=== PATIENT | female | born 1955 | race Caucasian/White ===

== ENCOUNTER 2021-07-25 12:11 | Emergency (ER) | payer BC, OTHER, SELFPAY ==
--- NOTE | ~2021-07-25 | CT_ITS ---
EXAMINATION: CT brain wo con DATE: 07/25/2021 14:01 INDICATION: Headache. Head injury. TECHNIQUE: Computed tomography (CT) of the head was performed without intravenous contrast. The mA wa s adjusted according to patient size. Iterative reconstruction technique was employed. The dose-lengt h product was 605.33 mGy-cm. COMPARISON: Brain MRI 07/13/2004 FINDINGS: There is no intracranial hemorrhage, acute infarction, or abnormal intracranial mass lesion . The ventricles are normal in size. There is mild mucosal thickening in the ethmoid sinuses. The orb its are normal. The mastoid air cells are normal. IMPRESSION: 1. Normal brain. Reviewed, dictated and finalized at location A. OR SALES OPERATIONS ANALYST IMPRESSION: 1. Normal brain.
--- NOTE | ~2021-07-25 | CT_ITS ---
EXAMINATION: CT thoracic spine wo con DATE: 07/25/2021 14:02 INDICATION: Back pain. Fall. TECHNIQUE: Computed tomography (CT) of the thoracic spine was performed without intravenous contrast. Automated exposure control and iterative reconstruction technique were employed. The dose-length pro duct was 369.00 mGy-cm. COMPARISON: None FINDINGS: There is 4 degrees dextrocurvature of thoracolumbar spine. There is 2 mm anterolisthesis of T2 on T3. There is a compression fracture of T3 with 2/5 loss of height of the inferior endplate. Th ere is a chronic mild compression fracture of T5. There is mild chronic anterior wedging of T11, T12, and L1 vertebral bodies. There is mildly decreased disc height at T2-T3, T6-T7, and T7-T8. There is multilevel facet joint osteoarthritis, severe bilaterally at T1-T2. There is mild bilateral neural fo raminal stenosis at T1-T2. No central canal stenosis. IMPRESSION: 1. Acute versus subacute T3 compression fracture. 2. Mild thoracic spondylosis. Reviewed, dictated and finalized at location A. ERCIAL LOAN OFFICER
--- NOTE | ~2021-07-25 | CT_ITS ---
EXAMINATION: CT cervical spine wo con DATE: 07/25/2021 14:01 INDICATION: Neck pain. Head injury. TECHNIQUE: Computed tomography (CT) of the cervical spine was performed without intravenous contrast. Automated exposure control and iterative reconstruction technique were employed. The dose-length pro duct was 133.46 mGy-cm. COMPARISON: None FINDINGS: There is 2 mm anterolisthesis of C5 on C6 and C7 on T1. There is a compression fracture inv olving inferior endplate of T3 with 2/5 loss of height. There is moderately decreased disc height at C3-C4 and C5-C6 and severely decreased disc height at C4-C5 and C6-C7. The following disc levels are specifically discussed: C2-C3: There is no uncovertebral joint osteoarthritis. There is moderate right and mild left facet ind[place] int osteoarthritis. There is no neural foraminal stenosis. There is no central canal stenosis. C3-C4: There is severe bilateral uncovertebral joint osteoarthritis. There is severe bilateral facet joint osteoarthritis. There is moderate bilateral neural foraminal stenosis. There is mild central ca nal stenosis. C4-C5: There is severe bilateral uncovertebral joint osteoarthritis. There is moderate right and kailyn re left facet joint osteoarthritis. There is moderate bilateral neural foraminal stenosis. There is m ild central canal stenosis. C5-C6: There is severe bilateral uncovertebral joint osteoarthritis. There is severe right and mild l eft facet joint osteoarthritis. There is moderate bilateral neural foraminal stenosis. There is mild central canal stenosis. C6-C7: There is mild right and severe left uncovertebral joint osteoarthritis. There is mild bilatera l facet joint osteoarthritis. There is moderate bilateral neural foraminal stenosis. There is mild ce ntral canal stenosis. C7-T1: There is no uncovertebral joint osteoarthritis. There is severe bilateral facet joint osteoart hritis. There is mild right and moderate left neural foraminal stenosis. There is no central canal st enosis. IMPRESSION: 1. Acute versus subacute T3 compression fracture. 2. Severe cervical spondylosis. Reviewed, dictated and finalized at location A. HANDLER
[2021-07-25 12:35] VITALS: BP 131/87; PULSE 100; RESP 16; TEMP 36.7; O2SAT 100
--- NOTE | 2021-07-25 13:55 | PC.NURSE ---
1355- RN WENT TO APPLY C-COLLAR AND PATIENT NOT IN ROOM.
--- NOTE | 2021-07-25 14:07 | PC.NURSE ---
1405-PATIENT RETURNED FROM CT SCAN. RN WENT TO APPLY C-COLLAR AND PATIENT DECLINED. PATIENT STATES I HAVE BEEN WALKING AROUND SINCE SUNDAY . PATIENT STATES SHE IS NOT CONCERNED ABOUT HER NECK I AM MY BACK .
--- NOTE | 2021-07-25 14:08 | ED.FALL ---
HPI - Fall General Chief Complaint: Fall Stated Complaint: fall Time Seen by Provider: 07/25/21 13:15 Source: patient Mode of arrival: ambulatory Limitations: no limitations History of Present Illness HPI Narrative: This is a 65 year old female that presents to the ER for back pain after a fall 2 days ago. Reports on Sunday night her fell down the steps, crashing into her and a speaker. Reports this caused her to fall backwards down about 3 steps and hit her head on the floor. Reports since the injury she has had mid-upper back pain and headaches. Denies vision changes, vomiting, numbness or weakness. Related Data Home Medications Medication Instructions Recorded Confirmed aspirin 81 mg tablet,delayed 81 mg PO DAILY 10/23/19 04/19/21 release calcium carb,cit 300 mg-D3 200 tablet PO 10/23/19 04/19/21 unit-min no.34-genistein 13.5 mg tablet cetirizine 10 mg tablet 10 mg PO DAILY 10/23/19 04/19/21 denosumab 60 mg/mL subcutaneous 60 mg SUB-Q [id number] 10/23/19 04/19/21 syringe ipratropium bromide 0.02 % 2.5 ml INHALATION Q6H PRN 10/23/19 04/19/21 solution for inhalation montelukast 10 mg tablet 10 mg PO DAILY 10/23/19 04/19/21 multivit with 1 tablet PO DAILY 10/23/19 04/19/21 sljvtbon-qzqe-FG-lutein 8 mg iron-400 mcg-300 mcg tablet albuterol sulfate 90 mcg/actuation 1 inhalation INHALATION Q4-6H PRN 10/25/19 04/19/21 aerosol inhaler gm gabapentin 600 mg tablet 300 mg PO .COMPLEX tablet 10/14/20 04/19/21 cholecalciferol (vitamin D3) 1,250 50,000 unit PO MONTHLY cap 04/19/21 04/19/21 mcg (50,000 unit) capsule Allergies Allergy/AdvReac Type Severity Reaction Status Date / Time tetracycline Allergy Unknown Hallucinati Verified 07/25/21 12:38 ng Review of Systems Review of Systems: CONSTITUTIONAL: Denies fever EYES: Denies visual changes GASTROINTESTINAL: Denies vomiting MUSCULOSKELETAL: Reports back pain, joint pain, and myalgia. NEUROLOGIC: Reports headache. Denies numbness, or weakness. All systems reviewed & are unremarkable except as noted in HPI and below PMFSH Past Medical History Medical History (Updated 07/25/21 @ 17:16 by Viky Dent PA-C) Hypothyroidism, acquired Osteoporosis Family History Family History Mother Family history of osteoporosis Sibling Family history of osteoporosis Social History Social History Smoking status: Never smoker Alcohol intake: current Exam Narrative: GENERAL: Well-appearing, well-nourished, and in no acute distress. HEAD: Normocephalic, atraumatic. EYES: PERRLA and EOMI. ENT: Nares clear, no rhinorrhea or epistaxis. Mucous membranes moist. Oropharynx without tonsillar hypertrophy exudate or other lesions. Bilateral TMs pearly arellano non-bulging NECK: Supple. No adenopathy or masses. Tender to palpation of midline lower cervical spine CHEST: Clear to auscultation. No respiratory distress. No wheezes rales or rhonchi HEART: Regular rate and rhythm. No murmur heard. Normal peripheral pulses. BACK: Tender to palpation of midline thoracic spine. No midline lumbar spine tenderness EXTREMITIES: Normal range of motion. No edema or obvious deformity. Strength equal in bilateral upper and lower extremities (5/5) SKIN: Warm, dry, no rash. NEURO: No focal deficits. Alert and oriented x3. Cranial nerves II through XII grossly intact PSYCH: Normal mood and affect Course Consultations Consultation #1: Spoke with Dr. Delgadillo about patient and workup who recommends TLSO bracing and follow up in clinic Date: 07/25/21 Time: 16:23 Vital Signs Vital signs: Vital Signs Temperature 98.1 F 07/25/21 12:35 Pulse Rate 100 07/25/21 12:35 Respiratory Rate 16 07/25/21 12:35 Blood Pressure 131/87 07/25/21 12:35 Pulse Oximetry 100 07/25/21 12:35 Temperature 98.1 F 07/25/21 12:35 Pulse Rate 111 H 07/25/21 15:35 R
[2021-07-25] MEDS: HYDROcodone/acetaminophen (*CRX) 5-325 MG TABLET 1 TAB PO (14:34)
[2021-07-25 15:35] VITALS: BP 124/89; PULSE 111; RESP 20; O2SAT 99
== END 2021-07-25 17:23 | disposition left against medical advice (07) ==
PROVIDERS: Emergency Provider Emergency Medicine
DX: S22.030A Wedge compression fracture of third thoracic vertebra, initial encounter for closed fracture (principal); S09.90XA Unspecified injury of head, initial encounter; E03.9 Hypothyroidism, unspecified; M81.0 Age-related osteoporosis without current pathological fracture; Z79.82 Long term (current) use of aspirin; W10.9XXA Fall (on) (from) unspecified stairs and steps, initial encounter
CPT/HCPCS: 70450; 72125; 72128; 99284; A9270; L0140

== ENCOUNTER 2021-07-27 09:21 | Emergency (ER) | payer BC, OTHER, SELFPAY ==
--- NOTE | ~2021-07-27 | XR_ITS ---
EXAMINATION: XR chest 1V portable DATE: 07/27/2021 11:27 INDICATION: Cough and bronchitis TECHNIQUE: frontal view of the chest was obtained. COMPARISON: Chest radiograph dated 11/03/2015 FINDINGS: Mild elevation of the right hemidiaphragm which is new since the prior study. No focal airspace opaci ties, pulmonary edema, pleural effusion or pneumothorax. The cardiomediastinal silhouette is normal. Visualized bones and soft tissues are unremarkable. IMPRESSION: 1. New mild elevation of the right hemidiaphragm. Clear lungs. Reviewed, dictated and finalized at location B. KNITTING MACHINE OPERATOR
[2021-07-27 09:49] VITALS: BP 127/71; PULSE 134; RESP 20; TEMP 39.4; O2SAT 100
[2021-07-27 10:29] VITALS: BP 119/77; PULSE 139; RESP 23; TEMP 38.9; O2SAT 100; O2SAT 97
[2021-07-27] MEDS: IBUPROFEN 600 MG TABLET PO (10:47)
--- NOTE | 2021-07-27 10:49 | PC.NURSE ---
ibuprofen given also because of temperature being elevated. See VS
[2021-07-27 11:38] VITALS: BP 116/74; PULSE 101; RESP 20
--- NOTE | 2021-07-27 12:00 | ED.GENADULT ---
HPI - General Adult General Chief complaint: Upper Respiratory Infection Stated complaint: cough Time Seen by Provider: 07/27/21 10:29 Source: patient Mode of arrival: ambulatory Limitations: no limitations History of Present Illness HPI narrative: Patient is 65-year-old female presented with chief complaint of cough and intermittent fevers over the last 2 days. Patient reports that she has asthma and spoke with her primary care and had her inhalers refilled. Patient reports that her primary care also prescribed her prednisone and a Z-Magen. Patient reports that she is not vaccinated. She reports that her patient is admitted to [facility] with complications of Covid. Patient denies shortness of breath, wheezing, nausea, vomiting or chest pain. Related Data Home Medications Medication Instructions Recorded Confirmed aspirin 81 mg tablet,delayed 81 mg PO DAILY 10/23/19 04/19/21 release calcium carb,cit 300 mg-D3 200 tablet PO 10/23/19 04/19/21 unit-min no.34-genistein 13.5 mg tablet cetirizine 10 mg tablet 10 mg PO DAILY 10/23/19 04/19/21 denosumab 60 mg/mL subcutaneous 60 mg SUB-Q [id number] 10/23/19 04/19/21 syringe ipratropium bromide 0.02 % 2.5 ml INHALATION Q6H PRN 10/23/19 04/19/21 solution for inhalation montelukast 10 mg tablet 10 mg PO DAILY 10/23/19 04/19/21 multivit with 1 tablet PO DAILY 10/23/19 04/19/21 urzpeirp-wlio-AG-lutein 8 mg iron-400 mcg-300 mcg tablet albuterol sulfate 90 mcg/actuation 1 inhalation INHALATION Q4-6H PRN 10/25/19 04/19/21 aerosol inhaler gm gabapentin 600 mg tablet 300 mg PO .COMPLEX tablet 10/14/20 04/19/21 cholecalciferol (vitamin D3) 1,250 50,000 unit PO MONTHLY cap 04/19/21 04/19/21 mcg (50,000 unit) capsule Allergies Allergy/AdvReac Type Severity Reaction Status Date / Time tetracycline Allergy Unknown Hallucinati Verified 07/25/21 12:38 ng Review of Systems Review of Systems: CONSTITUTIONAL: Reports fever, chills EYES: Denies visual changes, redness, or discharge. ENT: Denies rhinorrhea, congestion, sore throat, or otalgia. CARDIOVASCULAR: Denies chest pain, palpitations, or edema. RESPIRATORY: Reports cough denies dyspnea. GASTROINTESTINAL: Denies abdominal pain, nausea, vomiting, or diarrhea. GENITOURINARY: Denies dysuria or hematuria. SKIN: Denies rash or itching. MUSCULOSKELETAL: Denies back pain, joint pain, or myalgia. NEUROLOGIC: Denies headache, numbness, dizziness, or weakness. PSYCHIATRIC: Denies anxiety or depression. [facility] Past Medical History Medical History (Updated 07/27/21 @ 12:15 by Oni Lilly PA-C) Hypothyroidism, acquired Osteoporosis Family History Family History Mother Family history of osteoporosis Sibling Family history of osteoporosis Social History Social History Smoking status: Never smoker Alcohol intake: current Exam Narrative: GENERAL: Well-appearing, well-nourished, and in no acute distress. HEAD: Normocephalic, atraumatic. EYES: PERRLA and EOMI. CHEST: Clear to auscultation. No respiratory distress. No wheezes rales or rhonchi. HEART: Regular rate and rhythm. No murmur heard. Normal peripheral pulses. SKIN: Warm, dry, no rash. NEURO: No focal deficits. Alert and oriented x3. PSYCH: Normal mood and affect. Course Vital Signs Vital signs: Vital Signs Temperature 102.9 F H 07/27/21 09:49 Pulse Rate 134 H 07/27/21 09:49 Respiratory Rate 20 07/27/21 09:49 Blood Pressure 127/71 07/27/21 09:49 Pulse Oximetry 100 07/27/21 09:49 Temperature 99.5 F 07/27/21 12:10 Pulse Rate 101 H 07/27/21 11:38 Respiratory Rate 20 07/27/21 11:38 Blood Pressure 116/74 07/27/21 11:38 Pulse Oximetry 93 07/27/21 12:08 Medical Decision Making MDM Narrative Medical decision making narrative: Patient was febrile and tachycardic upon arrival. Patient received
[2021-07-27 12:08] VITALS: TEMP 37.5; O2SAT 93
[2021-07-27 12:10] VITALS: TEMP 37.5
[2021-07-27 12:35] VITALS: BP 102/76; PULSE 103; RESP 18; O2SAT 97
[2021-07-27 20:49] LABS: SARS-CoV-2 RNA PCR Positive
== END 2021-07-27 12:37 | disposition home or self-care (01) ==
PROVIDERS: Physician Assistant; Emergency Provider Emergency Medicine
DX: U07.1 COVID-19 (principal); E03.9 Hypothyroidism, unspecified
CPT/HCPCS: 71045; 99283; A9270; C9803; U0003; U0005

== ENCOUNTER 2022-05-01 13:31 | Outpatient (CLI) | payer MEDICARE, BC, OTHER, SELFPAY ==
--- NOTE | ~2022-05-01 | DEXA_ITS ---
Bone Density Report Name: TAWNYA FLOOD Age: 66 Sex: Female Ethnicity: White Date of : 1955 Indication: postmenopausal; screening for osteoporosis; asthma or emphysema; Referring Provider: EMILY SANCHEZ Study: Bone densitometry was performed. Exam Date: May 01, 2022 Accession number: [id number] Bone Density: Region BMD T-score Z-score Classification AP Spine(L1-L4) 0.877 -1.5 0.3 Osteopenia Femoral Neck (Left) 0.682 -1.5 0.0 Osteopenia Total Hip (Left) 0.863 -0.6 0.6 Normal Femoral Neck (Right) 0.655 -1.7 -0.2 Osteopenia Total Hip (Right) 0.892 -0.4 0.8 Normal Total Hip Mean 0.877 -0.5 0.7 Normal World Health Organization criteria for BMD impression classify patients as: Normal (T-score at or above -1.0), Osteopenia (T-score between -1.0 and -2.5), or Osteoporosis (T-score at or below -2.5). 10-year Fracture Risk(1): Major Osteoporotic Fracture 9.5% Hip Fracture 1.2% Reported Risk Factors: [place] (), Neck BMD=0.655, BMI=23.8 (1) FRAX(R) Version 3.08. Fracture probability calculated for an untreated patient. Fracture probability may be lower if the patient has received treatment. Clinical Information Provided by Patient: Has used the following medications: Prolia (i.e. denosumab), Vitamin D, Calcium Has the following medical conditions: Asthma or Emphysema, hypothyroid Patient maximum height was 62 Menopause Age: 41 Onset of menses at age 10 Number of children 0 Impression: The patient has low bone mass, based on the Right Femoral Neck T-score. The patient has an estimated ten-year risk of hip fracture of 1.2% and an estimated ten-year risk of major fracture of 9.5%, based on the WHO FRAX algorithm. Discussion: BONE DENSITY IS LOW AT ONE OR MORE SKELETAL SITES. This patient's lowest T-score is low at one or more skeletal sites. It meets the World Health Organization's (WHO) criteria for ?low bone mass? (T-score between -1.0 and -2.5). The patient's 10-year risk of fracture as calculated by FRAX is less than the threshold where pharmacological therapy is recommended by the National Osteoporosis Foundation (NOF). However, all treatment decisions require clinical judgment and consideration of individual patient factors, including patient preferences, comorbidities, previous drug use, risk factors not captured in the FRAX model (e.g., frailty, falls, vitamin D deficiency, increased bone turnover, interval significant decline in bone density) and possible under or overestimation of fracture risk by FRAX. The patient should follow a healthful lifestyle (good nutrition with adequate calcium and vitamin D, and appropriate weight-bearing exercise). Follow-Up: Consider repeating this study in 2 to 3 years to reassess this patient's status, or sooner if
== END 2022-05-01 13:32 | disposition home or self-care (01) ==
LOC: ANHIMG 13:36
PROVIDERS: Visit Provider Internal Medicine Endocrinology, Diabetes & Metabolism
DX: M81.0 Age-related osteoporosis without current pathological fracture (principal); M85.88 Other specified disorders of bone density and structure, other site; M85.852 Other specified disorders of bone density and structure, left thigh; M85.851 Other specified disorders of bone density and structure, right thigh
CPT/HCPCS: 77080

== ENCOUNTER 2022-08-11 10:59 | Outpatient (CLI) | payer MEDICARE, OTHER, SELFPAY ==
[2022-08-11 12:55] LABS: Free T4 Free Thyroxine 1.52 ng/mL (0.78-2.19)
== END 2022-08-11 11:00 | disposition home or self-care (01) ==
PROVIDERS: Visit Provider Internal Medicine Endocrinology, Diabetes & Metabolism
DX: E03.9 Hypothyroidism, unspecified (principal)
CPT/HCPCS: 36415; 84439; 84443

== ENCOUNTER 2022-09-27 10:07 | Outpatient (CLI) | payer MEDICARE, OTHER, SELFPAY ==
[2022-09-27 11:23] LABS: Thyroid Stimulating Hormone 0.962 uIU/mL (0.465-4.680)
[2022-09-27 12:25] LABS: Free T4 Free Thyroxine 1.55 ng/mL (0.78-2.19)
== END 2022-09-27 10:08 | disposition home or self-care (01) ==
PROVIDERS: Visit Provider Internal Medicine Endocrinology, Diabetes & Metabolism
DX: E03.9 Hypothyroidism, unspecified (principal); M81.0 Age-related osteoporosis without current pathological fracture
CPT/HCPCS: 36415; 84439; 84443

== ENCOUNTER 2023-01-17 10:43 | Emergency (ER) | payer MEDICARE, OTHER, SELFPAY ==
[2023-01-17 11:01] VITALS: BP 115/66; PULSE 75; RESP 16; TEMP 36.8; O2SAT 100
--- NOTE | 2023-01-17 11:27 | ED.SKABFB ---
HPI - Skin/Abscess/Foreign Bdy General Chief complaint: Skin/Abscess/Foreign Body Stated complaint: insect bite Time Seen by Provider: 01/17/23 11:14 Source: patient Mode of arrival: ambulatory Limitations: no limitations History of Present Illness HPI narrative: Patient presents today complaining of an insect bite to her right lateral ankle that was sustained 3 days ago. States the redness surrounding it continues to worsen and reports itching. She has been applying antibiotic ointment and a Band-Aid. She was at physical therapy today for unrelated issue and was told that she needed to have it evaluated. Related Data Home Medications Medication Instructions Recorded Confirmed aspirin 81 mg tablet,delayed 81 mg PO DAILY 10/23/19 01/17/23 release (Adult Low Dose Aspirin) cetirizine 10 mg tablet (Zyrtec) 10 mg PO DAILY 10/23/19 01/17/23 denosumab 60 mg/mL subcutaneous 60 mg subcut [id number] 10/23/19 01/17/23 syringe (Prolia) montelukast 10 mg tablet 10 mg PO DAILY 10/23/19 01/17/23 (Singulair) multivit with 1 tablet PO DAILY 10/23/19 01/17/23 jyenxpwm-aewx-LJ-lutein 8 mg iron-400 mcg-300 mcg tablet (Centrum Silver Women) cholecalciferol (vitamin D3) 50 50 mcg PO DAILY 02/13/22 01/17/23 mcg (2,000 unit) capsule gabapentin 300 mg capsule 300 mg PO DAILY 02/13/22 01/17/23 albuterol sulfate 90 mcg/actuation 2 inh inhalation PRN PRN Shortness 01/17/23 01/17/23 aerosol inhaler (ProAir HFA) Of Breath Or Wheezing prazosin 1 mg capsule 1 mg PO DAILY 01/17/23 01/17/23 Allergies Allergy/AdvReac Type Severity Reaction Status Date / Time tetracycline AdvReac Intermediate Hallucinati Verified 01/17/23 11:01 ng Review of Systems Review of Systems: CONSTITUTIONAL: Denies body aches, fever, chills, or sweats. EYES: Denies visual changes, redness, or discharge. ENT: Denies rhinorrhea, congestion, sore throat, or otalgia. CARDIOVASCULAR: Denies chest pain, palpitations, or edema. RESPIRATORY: Denies cough or dyspnea. GASTROINTESTINAL: Denies abdominal pain, nausea, vomiting, or diarrhea. GENITOURINARY: Denies dysuria or hematuria. SKIN: + insect bite to right ankle MUSCULOSKELETAL: Denies back pain, joint pain, or myalgia. NEUROLOGIC: Denies headache, numbness, tingling, or weakness. PSYCH: Denies depression or anxiety. [facility] Past Medical History Medical History Hypothyroidism, acquired Osteoporosis Family History Family History Mother Family history of osteoporosis Sibling Family history of osteoporosis Social History Social History Smoking status: Never smoker Alcohol intake: current Spiritual care concerns: No Comments At time of signature, I have reviewed and agree with nursing past medical, surgical, social and family history unless otherwise noted. Please see nursing chart for further information. There is no relevant family history pertinent to the presenting complaint Exam Narrative: GENERAL: Well-appearing, well-nourished, and in no acute distress. HEAD: Normocephalic, atraumatic. EYES: EOMI. No redness or drainage. Conjunctivae normal. ENT: Mucous membranes pink and moist. NECK: Normal AROM. CHEST: No respiratory distress. EXTREMITIES: 1.5 cm round area of erythema with mild induration to the right lateral ankle with small scab in the center. Nontender to palpation. No fluctuance noted. No drainage noted. Distal sensation intact. Capillary refill normal. Pedal pulse normal. Full range of motion of the ankle without pain. SKIN: Warm, dry, no rash. Capillary refill normal. Normal skin turgor. NEURO: No focal deficits. Alert and oriented x3. Gait steady. PSYCH: Normal affect. No signs of depression or anxiety. Course Course Level of Care: Express Care Visit Vital Signs
== END 2023-01-17 11:31 | disposition home or self-care (01) ==
PROVIDERS: Emergency Provider Nurse Practitioner
DX: S90.561A Insect bite (nonvenomous), right ankle, initial encounter (principal); W57.XXXA Bitten or stung by nonvenomous insect and other nonvenomous arthropods, initial encounter; M81.0 Age-related osteoporosis without current pathological fracture; Z79.82 Long term (current) use of aspirin
CPT/HCPCS: 99213; G0463

== ENCOUNTER 2023-03-29 10:28 | Outpatient (CLI) | payer MEDICARE, OTHER, SELFPAY ==
[2023-03-29 12:15] LABS: Albumin Level 4.1 g/dL (3.5-5.1); Anion Gap 4 mmol/L (8-16); Blood Urea Nitrogen 17 mg/dL (7-17); Calcium 9.3 mg/dL (8.4-10.2); Carbon Dioxide 31 mmol/L (22-30); Chloride 104 mmol/L (98-107); Estimated Glomerular Filt Rate 55; Glucose 88 mg/dL (65-110); Phosphorus 3.6 mg/dL (2.5-4.5); Sodium 139 mmol/L (137-145)
[2023-03-29 14:33] LABS: Free T4 Free Thyroxine 1.62 ng/mL (0.78-2.19)
== END 2023-03-29 10:29 | disposition home or self-care (01) ==
PROVIDERS: Visit Provider Internal Medicine Endocrinology, Diabetes & Metabolism
DX: E03.9 Hypothyroidism, unspecified (principal); M81.0 Age-related osteoporosis without current pathological fracture; R79.89 Other specified abnormal findings of blood chemistry
CPT/HCPCS: 36415; 80069; 82306; 84439; 84443

== ENCOUNTER 2023-04-24 16:13 | Outpatient (CLI) | payer MEDICARE, OTHER, SELFPAY ==
--- NOTE | ~2023-04-24 | US_ITS ---
EXAMINATION: US soft tissue head and neck DATE: 04/24/2023 16:57 INDICATION: evaluate cervical lymph nodes . TECHNIQUE: Grayscale and Doppler ultrasound images of the left neck were obtained. COMPARISON: None. FINDINGS: The area of clinical concern correlates with the left carotid bulb. No lymphadenopathy. No solid or cystic soft tissue mass detected. IMPRESSION: No sonographic abnormalities detected in the area of clinical concern. Reviewed, dictated and finalized at location K.
== END 2023-04-24 16:14 | disposition home or self-care (01) ==
PROVIDERS: Visit Provider Internal Medicine Endocrinology, Diabetes & Metabolism
DX: R59.0 Localized enlarged lymph nodes (principal)
CPT/HCPCS: 76536

== ENCOUNTER 2023-06-11 10:11 | Outpatient (CLI) | payer MEDICARE, OTHER, SELFPAY ==
[2023-06-11 11:37] LABS: Vitamin D 25 Hydroxy 90.4 ng/mL
== END 2023-06-11 10:12 | disposition home or self-care (01) ==
PROVIDERS: Visit Provider Internal Medicine Endocrinology, Diabetes & Metabolism
DX: R79.89 Other specified abnormal findings of blood chemistry (principal); E55.9 Vitamin D deficiency, unspecified
CPT/HCPCS: 36415; 82306

== ENCOUNTER 2023-08-08 07:38 | Outpatient (CLI) | payer MEDICARE, OTHER, SELFPAY ==
--- NOTE | ~2023-08-08 | DEXA_ITS ---
Bone Density Report Name: TAWNYA ARGUELLO Age: 67 Sex: Female Ethnicity: White Date of : 1955 Indication: postmenopausal; screening for osteoporosis; prior fracture; asthma or emphysema; Referring Provider: EMILY SANCHEZ Study: Bone densitometry was performed. Exam Date: August 08, 2023 Accession number: [id number] Bone Density: Region BMD T-score Z-score Classification AP Spine(L1-L4) 0.923 -1.1 0.8 Osteopenia Femoral Neck (Left) 0.695 -1.4 0.2 Osteopenia Total Hip (Left) 0.850 -0.8 0.6 Normal Femoral Neck (Right) 0.709 -1.3 0.3 Osteopenia Total Hip (Right) 0.888 -0.4 0.9 Normal Total Hip Mean 0.869 -0.6 0.8 Normal World Health Organization criteria for BMD impression classify patients as: Normal (T-score at or above -1.0), Osteopenia (T-score between -1.0 and -2.5), or Osteoporosis (T-score at or below -2.5). 10-year Fracture Risk: FRAX not reported because: Prior hip or vertebral fracture Treated for osteoporosis Clinical Information Provided by Patient: Have had a previous hip or vertebral fracture Has had a low trauma fracture Is being treated for osteoporosis Has used the following medications: Prolia (i.e. denosumab), Vitamin D, Calcium Has the following medical conditions: Asthma or Emphysema Patient maximum height was 62 Menopause Age: 40 Onset of menses at age 10 Number of children 0 Impression: The patient has low bone mass, based on the Left Femoral Neck T-score. The patient has risk factors, including: previous fracture. Discussion: It is important to ask patients whether they are taking their medications and to encourage continued and appropriate compliance with their osteoporosis therapies to reduce fracture risk. It is also important to review their risk factors and encourage appropriate calcium and vitamin D intakes, exercise, fall prevention and other lifestyle measures. Follow-Up: Consider a repeat BMD and Vertebral Fracture Assessment (VFA) exam in 2 years or sooner if medically necessary, to reassess this patient's status. Reported by: BRISA on 08/08/2023 8:11:00 AM. Reviewed, dictated and finalized at location AJose HERNANDEZ
== END 2023-08-08 07:39 | disposition home or self-care (01) ==
LOC: ANHIMG 07:40
PROVIDERS: Visit Provider Internal Medicine Endocrinology, Diabetes & Metabolism
DX: M81.0 Age-related osteoporosis without current pathological fracture (principal)
CPT/HCPCS: 77080

== ENCOUNTER 2023-11-08 14:54 | Outpatient (CLI) | payer MEDICARE, OTHER, SELFPAY ==
[2023-11-08 18:44] LABS: Anion Gap 3 mmol/L (4-12); Blood Urea Nitrogen 23 mg/dL (7-17); Calcium 9.6 mg/dL (8.4-10.2); Carbon Dioxide 30 mmol/L (22-30); Chloride 106 mmol/L (98-107); Estimated Glomerular Filt Rate > 60; Glucose 88 mg/dL (65-110); Potassium 4.3 mmol/L (3.4-5.0); Sodium 139 mmol/L (137-145)
[2023-11-08 18:50] LABS: Free T4 Free Thyroxine 1.27 ng/mL (0.78-2.19); Vitamin D 25 Hydroxy 61.1 ng/mL
== END 2023-11-08 14:55 | disposition home or self-care (01) ==
LOC: ANHWCLAB 14:54
PROVIDERS: Visit Provider Internal Medicine Endocrinology, Diabetes & Metabolism
DX: M81.0 Age-related osteoporosis without current pathological fracture (principal); E03.9 Hypothyroidism, unspecified; E55.9 Vitamin D deficiency, unspecified
CPT/HCPCS: 36415; 80048; 82306; 84439; 84443

== ENCOUNTER 2023-12-16 14:57 | Emergency (ER) | payer MEDICARE, OTHER, SELFPAY ==
[2023-12-16 15:06] VITALS: BP 116/64; PULSE 86; RESP 18; TEMP 36.3; O2SAT 97
--- NOTE | 2023-12-16 15:31 | ED.SKABFB ---
HPI - Skin/Abscess/Foreign Bdy General Chief complaint: Skin/Abscess/Foreign Body Stated complaint: pos spider bites Time Seen by Provider: 12/16/23 15:23 Source: patient and RN notes reviewed Mode of arrival: ambulatory Limitations: no limitations History of Present Illness HPI narrative: Patient presents today with some insect bites to her right leg and left lower back. States she was bit while cleaning her garage 3-4 days ago. She has washed with alcohol and peroxide and applied triple antibiotic ointment without much relief. Related Data Home Medications Medication Instructions Recorded Confirmed aspirin 81 mg tablet,delayed 81 mg PO DAILY 10/23/19 12/16/23 release (Adult Low Dose Aspirin) cetirizine 10 mg tablet (Zyrtec) 10 mg PO DAILY 10/23/19 12/16/23 denosumab 60 mg/mL subcutaneous 60 mg subcut [id number] 10/23/19 12/16/23 syringe (Prolia) montelukast 10 mg tablet 10 mg PO DAILY 10/23/19 12/16/23 (Singulair) [id number]-duam-kbve 8 mg-folic 400 1 tablet PO DAILY 10/23/19 12/16/23 mcg-K 50 mcg-lutein 300 mcg tablet (Centrum Silver Women) gabapentin 300 mg capsule 300 mg PO DAILY 02/13/22 12/16/23 albuterol sulfate 90 mcg/actuation 2 inh inhalation PRN PRN Shortness 01/17/23 12/16/23 aerosol inhaler (ProAir HFA) Of Breath Or Wheezing Super C with Vit D3 Zinc 1 gummy BYMOUTH DAILY 04/04/23 12/16/23 Zinc 220 mg BYMOUTH BID 04/04/23 12/16/23 calcium carbonate-vitamin D3 1 tablet PO DAILY 04/04/23 12/16/23 [Calcium 600 with Vitamin D3] prazosin 2 mg capsule 2 mg PO QHS 11/08/23 12/16/23 Allergies Allergy/AdvReac Type Severity Reaction Status Date / Time tetracycline AdvReac Intermediate Hallucinati Verified 12/16/23 15:08 ng Review of Systems Review of Systems: CONSTITUTIONAL: Denies body aches, fever, chills, or sweats. EYES: Denies visual changes, redness, or discharge. ENT: Denies rhinorrhea, congestion, sore throat, or otalgia. CARDIOVASCULAR: Denies chest pain, palpitations, or edema. RESPIRATORY: Denies cough or dyspnea. GASTROINTESTINAL: Denies abdominal pain, nausea, vomiting, or diarrhea. GENITOURINARY: Denies dysuria or hematuria. SKIN: + insect bites MUSCULOSKELETAL: Denies back pain, joint pain, or myalgia. NEUROLOGIC: Denies headache, numbness, tingling, or weakness. PSYCH: Denies depression or anxiety. [facility] Past Medical History Medical History Hypothyroidism, acquired Osteoporosis Family History Family History Mother Family history of osteoporosis Sibling Family history of osteoporosis Social History Social History Smoking status: Never smoker Alcohol intake: current Spiritual care concerns: No Comments At time of signature, I have reviewed and agree with nursing past medical, surgical, social and family history unless otherwise noted. Please see nursing chart for further information. There is no relevant family history pertinent to the presenting complaint Exam Narrative: GENERAL: Well-appearing, well-nourished, and in no acute distress. HEAD: Normocephalic, atraumatic. EYES: EOMI. No redness or drainage. Conjunctivae normal. ENT: Mucous membranes pink and moist. NECK: Normal AROM. CHEST: No respiratory distress. EXTREMITIES: Normal range of motion. No edema. SKIN: Warm, dry, no rash. Capillary refill normal. Normal skin turgor. Approx 2cm round area of petechiae with scabbed puncture wound in the center to the right chin. Nontender. No erythema or induration. No fluctuance. No drainage. Similar lesion to the posterior right thigh. Two pink raised lesions to the left lower back consistent with mosquito bites. Nontender without induration, drainage. NEURO: No focal deficits. Alert and oriented x3. Gait steady. PSYCH: Normal affect. No signs of depression or anx
== END 2023-12-16 15:37 | disposition home or self-care (01) ==
PROVIDERS: Emergency Provider Nurse Practitioner
DX: S30.860A Insect bite (nonvenomous) of lower back and pelvis, initial encounter (principal); W57.XXXA Bitten or stung by nonvenomous insect and other nonvenomous arthropods, initial encounter; E03.9 Hypothyroidism, unspecified; M81.0 Age-related osteoporosis without current pathological fracture; Z79.82 Long term (current) use of aspirin
CPT/HCPCS: 99211; G0463

== ENCOUNTER 2024-05-15 10:15 | Outpatient (CLI) | payer MEDICARE, OTHER, SELFPAY ==
[2024-05-15 10:58] LABS: Albumin Level 4.2 g/dL (3.5-5.1); Anion Gap 6 mmol/L (4-12); Blood Urea Nitrogen 17 mg/dL (7-17); Calcium 9.1 mg/dL (8.4-10.2); Carbon Dioxide 31 mmol/L (22-30); Chloride 104 mmol/L (98-107); Estimated Glomerular Filt Rate 50; Glucose 88 mg/dL (65-110); Phosphorus 3.5 mg/dL (2.5-4.5); Potassium 4.6 mmol/L (3.4-5.0); Sodium 141 mmol/L (137-145)
[2024-05-15 11:28] LABS: Thyroid Stimulating Hormone 0.448 uIU/mL (0.465-4.680)
[2024-05-15 11:44] LABS: Vitamin D 25 Hydroxy 70.5 ng/mL
== END 2024-05-15 10:16 | disposition home or self-care (01) ==
LOC: ANHLAB 10:19
PROVIDERS: Visit Provider Internal Medicine Endocrinology, Diabetes & Metabolism
DX: M81.0 Age-related osteoporosis without current pathological fracture (principal); R79.89 Other specified abnormal findings of blood chemistry; E03.9 Hypothyroidism, unspecified
CPT/HCPCS: 36415; 80069; 82306; 84439; 84443

== ENCOUNTER 2024-06-08 16:02 | Emergency (ER) | payer MEDICARE, OTHER, SELFPAY ==
--- NOTE | ~2024-06-08 | XR_ITS ---
EXAM: XR finger 3rd RT min 2V DATE: 06/08/2024 16:38 HISTORY: pain and swelling x 1 hour,jammed it . COMPARISON: None available. FINDINGS: Normal mineralization. No fracture or dislocation. No lytic or blastic lesion. Mild scatte red degenerative changes. No erosion or periosteal change. Soft tissues within normal limits. IMPRESSION: No acute osseous finding in the right third digit. Reviewed, dictated and finalized at location K. TECHNICIAN
--- NOTE | 2024-06-08 16:16 | ED_ITS ---
HPI - Extremity Injury (Upper) General Chief Complaint: Extremity Injury, Upper Stated Complaint: RT Hand injury Time Seen by Provider: 06/08/24 16:30 Source: patient, RN notes reviewed and old records reviewed Mode of arrival: ambulatory Limitations: no limitations History of Present Illness HPI narrative: 68-year-old female presents to the [facility] with pain, swelling to the DIP right 3rd finger. It occurred about 1 hour prior to arrival States that she was talking a cover in and felt a pop. Related Data Home Medications Medication Instructions Recorded Confirmed aspirin 81 mg tablet,delayed 81 mg PO DAILY 10/23/19 06/08/24 release (Adult Low Dose Aspirin) cetirizine 10 mg tablet (Zyrtec) 10 mg PO DAILY 10/23/19 06/08/24 denosumab 60 mg/mL subcutaneous 60 mg subcut [id number] 10/23/19 06/08/24 syringe (Prolia) montelukast 10 mg tablet 10 mg PO DAILY 10/23/19 06/08/24 (Singulair) rzixyqgn-dbiq-[id number] 8 mg-folic 400 1 tablet PO DAILY 10/23/19 06/08/24 mcg-K 50 mcg-lutein 300 mcg tablet (Centrum Silver Women) albuterol sulfate 90 mcg/actuation 2 inh inhalation PRN PRN Shortness 01/17/23 06/08/24 aerosol inhaler (ProAir HFA) Of Breath Or Wheezing Super C with Vit D3 Zinc 1 gummy BYMOUTH DAILY 04/04/23 06/08/24 Zinc 220 mg BYMOUTH BID 04/04/23 06/08/24 calcium carbonate-vitamin D3 1 tablet PO DAILY 04/04/23 06/08/24 [Calcium 600 with Vitamin D3] prazosin 2 mg capsule 2 mg PO QHS 11/08/23 06/08/24 gabapentin 300 mg capsule 600 mg PO DAILY 05/12/24 06/08/24 Allergies Allergy/AdvReac Type Severity Reaction Status Date / Time tetracycline AdvReac Intermediate Hallucinati Verified 06/08/24 16:17 ng Review of Systems Review of Systems: All systems reviewed & are unremarkable except as noted in HPI and below Constitutional: Constitutional: Reports no additional constitutional complaints ENT: Reports system reviewed and no additional complaints, except as documented Cardiovascular: Cardiovascular: Reports no additional cardiovascular complaints, Denies chest pain and Denies dyspnea Respiratory: Respiratory: Reports no additional respiratory complaints, Denies chest congestion, Denies cough and Denies dyspnea Gastrointestinal: Gastrointestinal: Reports no additional gastrointestinal complaints, Denies abdominal pain, Denies nausea and Denies vomiting Musculoskeletal: Musculoskeletal: Reports as per HPI Integumentary/Breasts: Skin/Breast: Reports system reviewed and no additional complaints, except as docu PMFSH Past Medical History Medical History Hypothyroidism, acquired Osteoporosis Family History Family History Mother Family history of osteoporosis Sibling Family history of osteoporosis Social History Social History Smoking status: Never smoker Alcohol intake: current Spiritual care concerns: No Comments At the time of my signature, I reviewed and agree with the nursing past medical, surgical, social, and family history. There is no relevant family history pertinent to the patient complaint. Exam Const: General: cooperative, healthy appearing, comfortable, no acute distress, well developed, alert and well nourished Nutritional Appearance: well nourished Orientation/consciousness: patient oriented x3 Limitations: no limitations HENMT: Head: normal to inspection Ears: hearing grossly normal bilaterally and external ears normal Face/Nose/Sinus: Normal external nose present, normal facial exam and face symmetric Face and sinus: normal facial exam and face symmetric Eyes: General: appearance normal, both eyes and all related structures Alignment and Position: alignment normal Periorbital: periorbital findings normal Neck: Neck: normal visual inspection, full ROM, no lymphadenopathy and no meningeal signs Chest: Chest palpation & inspection: normal inspection of the chest Resp: Effort & Inspection: normal respiratory effort and able to speak in complete sentences Cardio: Rate: regular rate Skin: General skin exam: normal color and no rashes or lesions noted Lesions: no lesions Rashes: no rashes Wounds: no wounds Neuro: General: patient oriented x3, gait normal, tone normal, moves all extremities and no meningeal signs Cognition (Neuro): normal cognition Speech: normal speech Gait exam (Neuro): Normal gait present Extrem: General: normal to inspection, full ROM, capillary refill normal and normal gait Right upper extremity: normal capillary refill and Extremity exam: right hand normal capillary refill, normal ROM of fingers (Able to bend fingers completely. When 3rd finger D IP right hand cannot fully extend strep stops just shy of full extension) and swelling (Mild swelling 3rd finger D IP); no unusual warmth, no ecchymosis, no crepitus and no foreign bodies Psych: Appearance: grossly normal and well kempt Mental Status: mental status grossly normal Speech and movement: Normal speech and movement present and Clear speech present Affect: normal affect Attitude: cooperative Course Course Level of Care: Express Care Visit Vital Signs Vital signs: Vital Signs Temperature 97.8 F 06/08/24 16:19 Pulse Rate 75 06/08/24 16:19 Respiratory Rate 17 06/08/24 16:19 Blood Pressure 137/63 06/08/24 16:19 Pulse Oximetry 96 06/08/24 16:19 Oxygen Delivery Room Air 06/08/24 16:19 Temperature 97.8 F 06/08/24 16:19 Pulse Rate 75 06/08/24 16:19 Respiratory Rate 17 06/08/24 16:19 Blood Pressure 137/63 06/08/24 16:19 Pulse Oximetry 96 06/08/24 16:19 Oxygen Delivery Room Air 06/08/24 16:19 Reviewed MDM - Extremity Injury (Upper) MDM Narrative Medical decision making narrative: Patient sitting comfortably in exam room. Nontoxic, vitals stable. X-ray read as no acute findings. Concern for ligament issue. Able to bend finger, extend the D IP, stops just shy of full extension. Patient appropriate for outpatient treatment with follow-up, medical splint applied Discharge instructions reviewed with patient, as well as provided in writing per nursing staff. The instructions also include specific and strict return/GO TO THE ER as well as f/u information. All questions have been answered, and the patient deny any further questions with discharge and discharge plan. Some parts of this dictation were generated by voice recognition software and may contain typographical and/or grammatical inaccuracies. Differential Diagnosis Differential diagnosis: Likely other (Finger sprain, strain, fracture) Imaging Data Radiologist's impression: EXAM: XR finger 3rd RT min 2V DATE: 06/08/2024 16:38 HISTORY: pain and swelling x 1 hour,jammed it . COMPARISON: None available. FINDINGS: Normal mineralization. No fracture or dislocation. No lytic or blastic lesion. Mild scattered degenerative changes. No erosion or periosteal change. Soft tissues within normal limits. IMPRESSION: No acute osseous finding in the right third digit. Critical Care Time Critical Care Time Critical Care Time: No Discharge Plan Discharge Clinical Impression: Strain of finger, right Patient Disposition: Home, Self-Care Condition: Stable Instructions: Finger Sprain (ED) Additional Instructions: Wear the splint for come Take Motrin alternating with Tylenol as needed pain Today the x-ray did not show any fractures. There is a concern for a ligament injury due to limited range motion. Follow-up with primary care provider Follow up with Dr Rawls. For new or worsening symptoms go directly to emergency room Patient Language: Azeri Prescriptions: No Action albuterol sulfate [ProAir HFA] 90 mcg/actuation HFA aerosol inhaler 2 inh INHALATION PRN PRN (Reason: Shortness Of Breath Or Wheezing) calcium carbonate-vitamin D3 [Calcium 600 with Vitamin D3] 1 tablet PO DAILY Rx Instructions: 600 + 400 Am Pm Patient cut in half Super C with Vit D3 Zinc 1 gummy BYMOUTH DAILY Zinc 220 mg tablet 220 mg BYMOUTH BID gabapentin 300 mg capsule 600 mg PO DAILY aspirin [Adult Low Dose Aspirin] 81 mg tablet,delayed release (DR/EC) 81 mg PO DAILY Centrum Silver Women 8 mg iron-400 mcg-300 mcg tablet 1 tablet PO DAILY cetirizine [Zyrtec] 10 mg tablet 10 mg PO DAILY Prolia 60 mg/mL syringe 60 mg SUB-Q [id number] montelukast [Singulair] 10 mg tablet 10 mg PO DAILY prazosin 2 mg capsule 2 mg PO QHS levothyroxine 50 mcg tablet 50 mcg PO DAILY 90 Days Qty: 90 1RF Follow-up/Referrals: Cat,Aroldo Jain [Other] - 1 Week (express care follow up ) Fabrizio Rawls MD [Physician] - (Right 3rd finger DIP injury) Time of Disposition: 16:50
[2024-06-08 16:19] VITALS: BP 137/63; PULSE 75; RESP 17; TEMP 36.6; O2SAT 96
== END 2024-06-08 16:52 | disposition home or self-care (01) ==
PROVIDERS: Emergency Provider Nurse Practitioner
DX: S69.81XA Other specified injuries of right wrist, hand and finger(s), initial encounter (principal); X58.XXXA Exposure to other specified factors, initial encounter; Z79.82 Long term (current) use of aspirin; E03.9 Hypothyroidism, unspecified; M81.0 Age-related osteoporosis without current pathological fracture
CPT/HCPCS: 29130; 73140; 99213; G0463

== ENCOUNTER 2024-07-10 12:07 | Outpatient (CLI) | payer MEDICARE, OTHER, SELFPAY ==
[2024-07-10 13:39] LABS: Alanine Aminotransferase 26 U/L (6-35); Albumin Level 4.4 g/dL (3.5-5.1); Alkaline Phosphatase 67 U/L (38-126); Anion Gap 2 mmol/L (4-12); Aspartate Amino Transferase 36 U/L (14-36); Bilirubin,Total 0.5 mg/dL (0.2-1.3); Blood Urea Nitrogen 20 mg/dL (7-17); Calcium 9.5 mg/dL (8.4-10.2); Carbon Dioxide 31 mmol/L (22-30); Chloride 104 mmol/L (98-107); Estimated Glomerular Filt Rate > 60; Glucose 76 mg/dL (65-110); Potassium 4.7 mmol/L (3.4-5.0); Sodium 137 mmol/L (137-145)
[2024-07-10 14:10] LABS: Free T4 Free Thyroxine 1.04 ng/dL (0.78-2.19)
== END 2024-07-10 12:08 | disposition home or self-care (01) ==
LOC: ANHLAB 12:09
PROVIDERS: Visit Provider Internal Medicine Endocrinology, Diabetes & Metabolism
DX: E03.9 Hypothyroidism, unspecified (principal); N28.9 Disorder of kidney and ureter, unspecified
CPT/HCPCS: 36415; 80053; 84439; 84443

== ENCOUNTER 2024-11-11 09:44 | Outpatient (CLI) | payer MEDICARE, OTHER, SELFPAY ==
--- OUTSIDE RECORDS SUMMARY | 2024-11-11 10:51 | XMS_ITS | Referral Summary ---
Author Organization [facility] Address [address] [place] [address] Care Team Providers Care Precision Lens Grinder Name Role Phone EricZackary zarcole Soni Primary Care Provider Allergies Active Allergy Reactions Criticality Noted Date Comments Tetracycline Tetracyclines Medications aspirin 81 mg enteric coated tablet Take 81 mg by mouth daily Active montelukast (SINGULAIR) 10 mg tablet Take 10 mg by mouth nightly Active cetirizine (ZyrTEC) 10 mg tablet Take 10 mg by mouth daily Active gabapentin (NEURONTIN) 300 mg capsule Take 600 mg by mouth daily Active calcium carbonate-vitam in D3 (Caltrate 600 plus D) 1,500 mg (600 mg elemental)-800 unit tablet,chewable Take 2 tablet/chew tab by mouth nightly Active pseudoephedrine ER (SUDAFED) 120 mg 12 hr tabletIndicatio ns:Nasal Congestion Take 120 mg by mouth daily as needed (allergy congestion) Active levothyroxine (SYNTHROID) 75 mcg tablet Take 75 mcg by mouth medical care manager before breakfast Active multivit-min/ir on/folic/lutein (CENTRUM SILVER WOMEN ORAL) Take 1 tablet by mouth daily Active zolpidem (AMBIEN) 10 mg tabletIndicatio ns:Sleep-Onset Insomnia Take 10 mg by mouth nightly as needed for sleep Active albuterol HFA (PROVENTIL HFA,VENTOLIN HFA,PROAIR HFA) 90 mcg/actuation inhaler Inhale 2 puffs every 6 (six) hours as needed for wheezing or shortness of breath Active denosumab (PROLIA) 60 mg/mL syringe Inject 60 mg under the skin every 6 (six) months Active ceci root extract 300 mg capsule Take 1,200 mg by mouth daily Active zinc gluconate 50 mg tablet Take 50 mg by mouth daily Active cholecalciferol (VITAMIN D-3) 25 mcg (1,000 unit) tablet Take 2,000 Units by mouth daily Active HYDROcodone-dorene taminophen (NORCO) 5-325 mg per tablet Take 1 tablet by mouth every 6 (six) hours as needed for pain 0 2 Active guaiFENesin-cod eine (GUAITUSS AC) liquid 100-10 mg/5 mL Take 10 mL by mouth every 4 (four) hours as needed for cough 0 2 Active albuterol HFA (ProAir HFA) 90 mcg/actuation inhaler Inhale 2 puffs every 4 (four) hours as needed for wheezing or shortness of breath 8.5 g 5 2 Active budesonide-form oteroL (SYMBICORT) 160-4.5 mcg/actuation inhaler Inhale 2 puffs 2 (two) times a day Rinse mouth with water after use. Do not swallow. 1 each 3 2 Active albuterol HFA (ProAir HFA) 90 mcg/actuation inhaler [The details of the medication are not available because there are pending changes by a home health clinician.] 8.5 g 5 2 Active Additional Information Patient taking differently:2 puff inhalation See admin instructions, 2 puffs in AMand 2 puffs in smith, Indications: post pneumonia/ covid, Reported on 09/01/2021 calcium citrate/vitamin D3 (CITRACAL + D ORAL)Indication s:osteo [porosis Take 2 tablets by mouth daily. Indications: osteo [porosis Active Active Problems Problem Noted Date Diagnosed Date Overweight (BMI 25.0-29.9) 08/30/2021 Allergic rhinitis 08/30/2021 Shortness of breath 08/02/2021 Pneumonia due to COVID-19 virus 08/02/2021 Acute respiratory failure with hypoxia 2 Pain of left upper extremity 06/15/2015 Scapulalgia 06/15/2015 Arthralgia of shoulder 04/30/2015 Acute ill-defined cerebrovascular disease 2013 Overview (10/27/2016): CEREBROVASC DISEASE NEC Adiposity 12/06/2013 Overview (10/27/2016): OBESITY-UNSPECIFIED Vitamin D deficiency 12/06/2013 Overview (10/27/2016): VITAMIN D DEFICIENCY NOS Disorder of thyroid 12/06/2013 Overview (10/27/2016): HYPOTHYROIDISM NOS Asthma Hypokalemia Social History Tobacco Use Types Packs/Day Years Used Date Smoking Tobacco: Never Alcohol Use Standard Drinks/Week Comments Yes 0 (1 standard drink = 0.6 oz pur e alcohol) Comments Unknown Sex and Gender Information Value Date Recorded Sex Assigned at Not on file Legal Sex Female 12:50 AM NURSE INFORMATICS EDUCATOR Gender Identity Not on file Sexual Orientation Not on file Last Filed Vital Signs Vital Sign Reading Time Taken Comments Blood Pressure 120/62 09/01/2021 2:58 PM NURSE INFORMATICS EDUCATOR Pulse 82 09/01/2021 2:58 PM NURSE INFORMATICS EDUCATOR Temperature 36.4 C (97.6 F) 09/01/2021 2:58 PM NURSE INFORMATICS EDUCATOR Respiratory Rate 18 09/01/2021 2:58 PM NURSE INFORMATICS EDUCATOR Oxygen Saturation 96% 09/01/2021 2:58 PM NURSE INFORMATICS EDUCATOR Inhaled Oxygen Concentration - - Weight 70.3 kg (155 lb) 09/01/2021 2:58 PM NURSE INFORMATICS EDUCATOR Height 157.5 cm (5' 2 ) 09/01/2021 2:58 PM NURSE INFORMATICS EDUCATOR Body Mass Index 28.35 09/01/2021 2:58 PM NURSE INFORMATICS EDUCATOR Plan of Treatment Not on file Insurance [facility] CLAIMS FORMERLY [facility] TRADITIONAL Advance Directives For more information, please contact: [phone] Documents on File Type Date Recorded Patient Hearing Aid Specialist Expl anation ADVANCE DIRECTIVE 08/02/2021 7:16 PM Power of Concert Manager-Medical * LIMITED - No CPR (Latest Code Status on File) Date Activated Date Inactivated Comments 08/02/2021 5:39 PM 08/09/2021 8:31 PM Question Answer Comments Provide aggressive medical m anagement before a full cardiopulmonary arrest occurs. Use antibiotics, IV Fluids, and medical treatment unless specifically selected below: No intubation Care Teams Precision Lens Grinder Relationship Specialty Start Date End Date Beata Reyes DO [address] [place], [place] [id number] PCP - General Family Medicine 08/02/21
--- OUTSIDE RECORDS SUMMARY | 2024-11-11 10:51 | XMS_ITS | Clinical Summary ---
Author Organization [facility] Address [address] [place] [address] Care Team Providers Care Dock Worker Name Role Phone EricBeata zarco Primary Care Provider Allergies Active Allergy Reactions [...] mcg tablet Take 75 mcg by mouth rodding anode worker before breakfast Active multivit-min/ir on/folic/lutein (CENTRUM SILVER [...] 12/06/2013 Overview (10/27/2016): HYPOTHYROIDISM NOS Asthma Hypokalemia Surgical History Surgery Date Site/Laterality Comments TUBAL LIGATION Bilateral tubal ligation MYOMECTOMY Myomectomy Medical History Medical History Date Comments Disorder of thyroid Thyroid dise ase Hypothyroidism Hypothyroidism Cerebrovascular accident (CVA) (HCC) Cerebrovascular accident Hx Other Medical Thyroiditis Asthma Family History Medical History Relation Name Comments Cancer Father Family history of malignant neoplasm - (Added by TW Conv) Arthritis Mother Family history of arthritis - (Added by TW Conv) Osteoporosis Mother Family history of osteoporosis - (Added by TW Conv) Other Other 1 No family histo ry of Diabetes mellitus; Osteoporosis Other 2 Family history of Osteoporosis; Relation Name Status Comments Father Mother Other 1 Other 2 Social History Tobacco Use Types Packs/Day Years Used Date Smoking Tobacco: Never Alcohol Use Standard Drinks/Week Comments Yes 0 (1 standard drink = 0.6 oz pur e alcohol) Comments Unknown Sex and Gender Information Value Date Recorded Sex Assigned at Not on file Legal Sex Female 12:50 AM GENERAL COUNSEL Gender Identity Not on file Sexual Orientation Not on file Obstetrics History Last Filed Vital Signs Vital Sign Reading Time Taken Comments Blood Pressure 120/62 09/01/2021 2:58 PM GENERAL COUNSEL Pulse 82 09/01/2021 2:58 PM GENERAL COUNSEL Temperature 36.4 C (97.6 F) 09/01/2021 2:58 PM GENERAL COUNSEL Respiratory Rate 18 09/01/2021 2:58 PM GENERAL COUNSEL Oxygen Saturation 96% 09/01/2021 2:58 PM GENERAL COUNSEL Inhaled Oxygen Concentration - - Weight 70.3 kg (155 lb) 09/01/2021 2:58 PM GENERAL COUNSEL Height 157.5 cm (5' 2 ) 09/01/2021 2:58 PM GENERAL COUNSEL Body Mass Index 28.35 09/01/2021 2:58 PM GENERAL COUNSEL Plan of Treatment Not on file Insurance [employer] [place] FOR LIFE [place] LIFE [facility]LY [facility] Advance Directives For more information, please contact: [phone] Documents on File Type Date Recorded Patient Casino Shift Manager Expl anation ADVANCE DIRECTIVE 08/02/2021 7:16 PM Power of Aircraft Structure Mechanic-Medical * LIMITED - No CPR (Latest Code Status on File) Date Activated Date Inactivated Comments 08/02/2021 5:39 PM 08/09/2021 8:31 PM Question Answer Comments Provide aggressive medical m anagement before a full cardiopulmonary arrest occurs. Use antibiotics, IV Fluids, and medical treatment unless specifically selected below: No intubation Care Teams Dock Worker Relationship Specialty Start Date End Date Beata Reyes DO [address] [place] [address] PCP - General Family Medicine 08/02/21
--- OUTSIDE RECORDS SUMMARY | 2024-11-11 10:51 | XMS_ITS | Clinical Summary ---
Author Organization [facility] Address [address] [place] [id number] Care Team Providers Care Cat And Dog Bather Name Role Phone Beata Reyes DO Primary Care Provider Social History Tobacco Use Types Packs/Day Years Used Date Smoking Tobacco: Never Assessed Comments Unknown Sex and Gender Information Value Date Recorded Sex Assigned at Not on file Legal Sex Female 8:33 PM CDT Gender Identity Not on file Sexual Orientation Not on file Plan of Treatment Health Maintenance Due Date Last Done Comments Colorectal Cancer Screening Colonoscopy (10 Years) 1956 Hepatitis C 1974 DTaP, Tdap and Td Vaccines ( 1 - Tdap) 11/07/1975 Mammogram Screening 1996 Pneumococcal Vaccine: 50+ Ye ars (1 of 1 - PCV) 2006 Zoster Vaccines (1 of 2) 2006 COVID-19 Vaccine ( - 2023-2 5 season) 2024 RSV Immunization or 60+ Years (1 - 1-dose 75+ series) 11/07/2031 Dexa Scan (General) Completed 04/09/2020 Meningococcal B Vaccine Aged Out No l onger eligible based on patient's age to complete this topic Meningococcal Vaccine Aged Out No annabelle phyllis eligible based on patient's age to complete this topic RSV Immunizations Under 20 Months Aged Out No longer eligible based on patient's age to complete this topic Procedures Procedure Name Priority Date/Time Associated Diagnosis Comments BONE DENSITY/DEXA Routine 04/09/2020 9:4 2 AM CDT Osteoporosis Postmenopause from Last 3 Months or Most Recently Relevant to Health Maintenance Results * BONE DENSITY/DEXA (04/09/2020 9:42 AM CDT) Anatomical Region Laterality Modality Bone Mammography 04/09/2020 9:45 AM CDT Impressions 04/09/2020 9:48 AM CDT Impression: BMD measured at AP lumbar spine and both femoral necks at WHO category level of osteopenia. BMD measured at both total hips at level of normal. Narrative 04/09/2020 9:48 AM CDT Examination: DEXA Bone densitometry EXAM DATE: 04/09/2020 9:12 AM Clinical history: Postmenopausal. Prior fracture. Parent with history of hip fracture. Calcium supplementation. Vitamin D use. History of hormone replacement therapy. Dairy product consumption. History of medication use for treatment of osteoporosis. Technique: DEXA bone minimal density evaluation was performed in the AP projection over the lumbar spine and over both hips in the AP projection utilizing standard imaging techniques. Assessment: The BMD measured at the AP spine L1-L4 is 0.859 g/cm? with a T-score of -1.7 and a Z-Score of -0.1. The patient is considered osteopenic according to World Health Organization (WHO) criteria. Bone density is between 10 and 25% below young normal. Fracture risk is moderate. Treatment is advised. The BMD measured at the femur total left is 0.888 g/cm? with a T-score of -0.4 and a Z-Score of 0.7. Bone density is up to 10% below young normal. This patient is considered normal according to the World Health Organization (WHO) criteria. Fracture risk is low. The BMD measured at the left femoral neck is 0.632 g/sq cm resulting in a T score of -2.0 and a Z score -0.5, values at the WHO category level of osteopenia. The BMD measured at the femur total right is 0.869 g/cm? with a T-score of -0.6 and aZ-Score of 0.5. Bone density is up to 10% below young normal. This patient is considered normal according to the World Health Organization (WHO) criteria. Fracture risk is low. The BMD measured at the right femoral neck is 0.651 g/sq cm resulting in a T score of -1.8 and a Z score of -0.4, values at the WHO category level of osteopenia. FRAX results: 10 year probability of major osteoporotic fracture 30% and of hip fracture 2.3%. Recommendations: All patients should ensure an adequate intake of dietary calcium and vitamin D. The NOF recommend adults under the age of 50 need 1000 mg of calcium and 400-800 IU of vitamin D daily. Effective therapy for the prevention and treatment of osteoporosis include biphosphonates. Follow-up: People with diagnosed cases of osteoporosis or at high risk for fracture should have regular bone mineral density test. For patients eligible for Medicare, routine testing is allowed once every 2 years. Testing frequency can be increased to one year for patients who have rapidly progressing disease, those who are receiving or discontinuing medical therapy to restore bone mass, or have additional risk factors. Based on these results, a followup exam is recommended in no earlier than 2 years. Procedure Note Juan Chávez MD - 04/09/2020 Examination: DEXA Bone densitometry EXAM DATE: 04/09/2020 9:12 AM Clinical history: Postmenopausal. Prior fracture. Parent with history of hip fracture. Calcium supplementation. Vitamin D use. History of hormone replacement therapy. Dairy product consumption. History of medicationuse for treatment of osteoporosis. Technique: DEXA bone minimal density evaluation was performed in the AP projection over the lumbar spine and over both hips in the AP projection utilizing standard imaging techniques. Assessment: The BMD measured at the AP spine L1-L4 is 0.859 g/cm? with a T-score of -1.7 and a Z-Score of -0.1. The patient is considered osteopenic according to World Health Organization (WHO) criteria. Bone density is between 10 and 25% below young normal. Fracture risk is moderate.Treatment is advised. The BMD measured at the femur total left is 0.888 g/cm? with a T-scoreof -0.4 and a Z-Score of 0.7. Bone density is up to 10% below youngnormal. This patient is considered normal according to the World Health Organization (WHO) criteria. Fracture risk is low. The BMD measured at the left femoral neck is 0.632 g/sq cm resulting in aT score of -2.0 and a Z score -0.5, values at the WHO category level of osteopenia. The BMD measured at the femur total right is 0.869 g/cm? with a T-scoreof -0.6 and aZ-Score of 0.5. Bone density is up to 10% below youngnormal. This patient is considered normal according to the World Health Organization (WHO) criteria. Fracture risk is low. The BMD measured at the right femoral neck is 0.651 g/sq cm resulting vandana T score of -1.8 and a Z score of -0.4, values at the WHO category levelof osteopenia. FRAX results: 10 year probability of major osteoporotic fracture 30% andof hip fracture 2.3%. Recommendations: All patients should ensure an adequate intake of dietary calcium and vitamin D. The NOF recommend adults under the age of 50 need 1000 mg of calcium and 400-800 IU of vitamin D daily. Effective therapy for the prevention and treatment of osteoporosis include biphosphonates. Follow-up: People with diagnosed cases of osteoporosis or at high risk for fracture should have regular bone mineral density test. For patients eligible for Medicare, routine testing is allowed once every 2 years. Testingfrequency can be increased to one year for patients who have rapidly progressing disease, those who are receiving or discontinuing medical therapy to restore bone mass, or have additional risk factors. Based on these results, a followup exam is recommended in no earlier than2 years. Impression: BMD measured at AP lumbar spine and both femoral necks at WHO category level of osteopenia. BMD measured at both total hips at level of normal. Rosalie Jeffries MD DEXA Final Res ult from Last 3 Months or Most Recently Relevant to Health Maintenance Insurance [facility] Care Teams Cat And Dog Bather Relationship Specialty Start Date End Date Beata Reyes DO [address] [address] [place] [id number] PCP - General FAMILY PRACTICE 04/05/20
--- OUTSIDE RECORDS SUMMARY | 2024-11-11 10:51 | XMS_ITS | Clinical Summary ---
Author Organization [facility] Address [address] [place] [address] Care Team Providers Care Supervising Broker Name Role Phone [address] Primary Care Prov ider Source Comments [facility],non-owned Affiliates and Associated Physician Practices is amultiple site organization consisting of ambulatory clinics and hospital sitesin [place], [place], [place] and [place]. This disclosure is being madepursuant to the Care Everywhere program and may not contain all information available regarding this patient. Last updated 18.[facility] Allergies Active Allergy Reactions Criticality Noted Date Comments Tetracycline Psychiatric Medium 08/09/2016 Social History Tobacco Use Types Packs/Day Years Used Date Smoking Tobacco: Never Assessed Comments Unknown Sex and Gender Information Value Date Recorded Sex Assigned at Not on file Legal Sex Female 6:17 AM PERINATAL COORDINATOR Gender Identity Not on file Sexual Orientation Not on file Plan of Treatment Health Maintenance Due Date Last Done Comments BONE DENSITY TESTING 1955 COLOGUARD (AGES 45-75) - COL ON CA SCREENING 1956 COLON MONITORING 1956 COLONOSCOPY - COLON CA SCREENING 1956 CT COLONOGRAPHY - COLON CA SCREENING 1955 Colorectal Cancer Screening 1956 FIT - COLON CA SCREENING 1956 FLEX SIG - COLON CA SCREENING 1956 LIPID TESTING 1956 MAMMOGRAM 1956 HEPATITIS C SCREENING 11/02/1974 DTAP/TDAP/TD VACCINES (1 - Tdap) 11/07/1975 PNEUMOCOCCAL VACCINE 50+ (1 of 1 - PCV) 2006 ZOSTER VACCINE (1 of 2) 2006 COVID-19 VACCINE (1 - 2023-2 5 season) 2024 DEPRESSION SCREENING 07/23/2024 INFLUENZA VACCINE (Season Ended) 2025 Respiratory Syncytial Virus (RSV) Vaccine Pt: or over 60 yrs (1 - 1-dose 75+ series) 11/07/2031 HEPATITIS B VACCINE Aged Out No longe r eligible based on patient's age to complete this topic HIB VACCINE Aged Out No longer eligi ble based on patient's age to complete this topic HPV VACCINE Aged Out No longer eligi ble based on patient's age to complete this topic MENINGOCOCCAL (Group B) VACC INE SHARED DECISION-MAKING Aged Out No longer eligibl e based on patient's age to complete this topic MENINGOCOCCAL GROUPS A/C/Y/W VACCINE Aged Out No longer eligible b ased on patient's age to complete this topic Insurance [facility] Care Teams Supervising Broker Relationship Specialty Start Date End Date [facility] [address] [facility], [place] [address] PCP - General 06/24/19
--- OUTSIDE RECORDS SUMMARY | 2024-11-11 10:51 | XMS_ITS | Continuity of Care Document ---
Author Organization [facility] Address [address] [facility] [address] [place] [address] Phone Care Team Providers Care Director Of User Experience Name Role Phone Mg OD, Keron Unavailable Unavailable Procedures Procedure Date Cntct Lens Hydrophil Bifocal Medical Tax Office/outpatient Visit, Est Office/outpatient Visit, Est Eye Exam Established Pt Office/outpatient Visit, Est Contact Lens Check Contact Lens Check Contact Lens Check Eye Exam & Treatment Refraction Eye Exam Established Pt Eye Exam Established Pt Eye Exam & Treatment Refraction Advance Directives Directive Yes / No Effective Date File Name No Information Encounters Encounter Description Practice Location Reason(s) For Visit Diagnoses Date Provider Providers Copied on Encounter [facility], [address], [place], [place], [id number], [place] tel:[phone] [facility] No Information Sep- 5-201 0 Mg OD Keron. [address], [place], [address], [place]. tel:[phone] Office/outpat ient Visit, Est [facility], [address], [place], [place], [address], [place] tel:[phone] [facility] No Information Sep-1 1-201 0 Mg OD Keron. [address], [place], [facility], [place]. tel:[phone] [facility], [address], [place], [place], [address], [place] tel:[phone] [facility] No Information Sammy-1 0-201 0 Mg OD Keron. [address], [place], [facility], [place]. tel:[phone] [facility], [address] [place] [address] [address], [place], [place], [address], [place] tel:[phone] [facility] No Information May-0 8-201 0 Mg OD Keron. [address], [place], [facility], [place]. tel:[phone] Office/outpat ient Visit, [facility], [address] [place] [address] [address], [place], [place], [address], [place] tel:[phone] [facility] No Information Apr-2 4-201 0 Mg OD Keron. [address], [place], [facility], [place]. tel:[phone] [facility], [address], [place], [place], [address], [place] tel:[phone] [facility] No Information Apr-1 0-201 0 Mg OD Keron. [address], [place], [facility], [place]. tel:[phone] [facility], [address], [place], [place], [address], [place] tel:[phone] [facility] No Information Mar-2 7-201 0 Mg OD Keron. [address], [place], [facility], [place]. tel:[phone] [facility], [address] [place] [address] [address], [place], [place], [address], tel:[phone] [facility] No Information Oct-3 0-200 9 Mg OD Keron. [address], [place], [facility], [place]. tel:[phone] [facility], [address] [place] [address] [address], [place], [place], [address], tel:[phone] [facility] No Information Oct-2 3-200 9 Mg OD Keron. [address], [place], [facility], . tel:[phone] [facility], [address] [place] [address] [address], [place], [place], [address], tel:[phone] [facility] No Information Aug-2 8-200 9 Mg OD Keron. [address], [place], [facility], [place]. tel:[phone] [facility], [address], [place], [place], [address], [place] tel:[phone] [facility] No Information Aug-2 1-200 9 Mg OD Keron. [address], [place], [facility], [place]. tel:[phone] [facility], [address] [place] [address] [address], [place], [place], [address], [place] tel:[phone] [facility] No Information Apr-0 1-200 8 Moody Lory. [address], [place], [facility], [place]. tel:[phone] Family History Family Member Type Diagnosis Age At Onset No Information Payers Payer name Insurance type Covered democrat ID Authoriza tion(s) No Information Social History Type Description Quantity Date Captured Comments Sex Female Smoking Status No Information Chief Complaint And Reason For Visit No Information Reason For Referral Reason For Referral No Information History Of Present Illness Encounter Date Complaint History Of Prese nt Illness No Information Functional Status Date Functional Assessmen t No Information Instructions Date Instruction Additional Infor mation No Information Assessments Type Assessment Date No Information Patient Care Teams Name Effective Dates (start - stop) Status Members No Information
[2024-11-11 15:08] LABS: Free T4 Free Thyroxine 1.08 ng/dL (0.78-2.19); Vitamin D 25 Hydroxy 73.6 ng/mL
== END 2024-11-11 09:45 | disposition home or self-care (01) ==
PROVIDERS: Visit Provider Internal Medicine Endocrinology, Diabetes & Metabolism
DX: E03.9 Hypothyroidism, unspecified (principal); M81.0 Age-related osteoporosis without current pathological fracture; E55.9 Vitamin D deficiency, unspecified
CPT/HCPCS: 36415; 82306; 84439; 84443

== ENCOUNTER 2025-01-01 12:48 | Outpatient (CLI) | payer MEDICARE, OTHER, SELFPAY ==
--- OUTSIDE RECORDS SUMMARY | 2025-01-01 13:20 | XMS_ITS | Clinical Summary ---
Author Organization [facility] Address [address] [place] [address] Care Team Providers Care Airplane Pilot Chief Name Role Phone EricZackary zarcole Soni Primary [...] mcg tablet Take 75 mcg by mouth automation machine builder before breakfast Active multivit-min/ir on/folic/lutein (CENTRUM SILVER [...] on file Legal Sex Female 12:50 AM FASHION DIRECTOR PARTY PLAN SALES Gender Identity Not on file Sexual Orientation Not on file Obstetrics History Last Filed Vital Signs Vital Sign Reading Time Taken Comments Blood Pressure 120/62 09/01/2021 2:58 PM FASHION DIRECTOR PARTY PLAN SALES Pulse 82 09/01/2021 2:58 PM FASHION DIRECTOR PARTY PLAN SALES Temperature 36.4 C (97.6 F) 09/01/2021 2:58 PM FASHION DIRECTOR PARTY PLAN SALES Respiratory Rate 18 09/01/2021 2:58 PM FASHION DIRECTOR PARTY PLAN SALES Oxygen Saturation 96% 09/01/2021 2:58 PM FASHION DIRECTOR PARTY PLAN SALES Inhaled Oxygen Concentration - - Weight 70.3 kg (155 lb) 09/01/2021 2:58 PM FASHION DIRECTOR PARTY PLAN SALES Height 157.5 cm (5' 2) 09/01/2021 2:58 PM FASHION DIRECTOR PARTY PLAN SALES Body Mass Index 28.35 09/01/2021 2:58 PM FASHION DIRECTOR PARTY PLAN SALES Plan of Treatment Not on file Insurance [place] [facility] Advance Directives For more information, please contact: [phone] Documents on File Type Date Recorded Patient Material Manager Expl anation ADVANCE DIRECTIVE 08/02/2021 7:16 PM Power of Medical Case Worker-Medical * LIMITED - No CPR (Latest Code Status on File) Date Activated Date Inactivated Comments 08/02/2021 5:39 PM 08/09/2021 8:31 PM Question Answer Comments Provide aggressive medical m anagement before a full cardiopulmonary arrest occurs. Use antibiotics, IV Fluids, and medical treatment unless specifically selected below: No intubation Care Teams Airplane Pilot Chief Relationship Specialty Start Date End Date Beata Reyes DO [address] [place] [address] PCP - General Family Medicine 08/02/21
--- OUTSIDE RECORDS SUMMARY | 2025-01-01 13:20 | XMS_ITS | Referral Summary ---
Author Organization [facility] Address [address] [place] [address] Care Team Providers Care Watershed Manager Name Role Phone EricZackary zarcole Soni Primary [...] mcg tablet Take 75 mcg by mouth in store marketing associate before breakfast Active multivit-min/ir on/folic/lutein (CENTRUM SILVER [...] on file Legal Sex Female 12:50 AM TOOTH POLISHER Gender Identity Not on file Sexual Orientation Not on file Last Filed Vital Signs Vital Sign Reading Time Taken Comments Blood Pressure 120/62 09/01/2021 2:58 PM TOOTH POLISHER Pulse 82 09/01/2021 2:58 PM TOOTH POLISHER Temperature 36.4 C (97.6 F) 09/01/2021 2:58 PM TOOTH POLISHER Respiratory Rate 18 09/01/2021 2:58 PM TOOTH POLISHER Oxygen Saturation 96% 09/01/2021 2:58 PM TOOTH POLISHER Inhaled Oxygen Concentration - - Weight 70.3 kg (155 lb) 09/01/2021 2:58 PM TOOTH POLISHER Height 157.5 cm (5' 2) 09/01/2021 2:58 PM TOOTH POLISHER Body Mass Index 28.35 09/01/2021 2:58 PM TOOTH POLISHER Plan of Treatment Not on file Insurance [facility] FOR [facility] FOR LIFE [facility] CLAIMS [facility] TRADITIONAL Advance Directives For more information, please contact: [phone] Documents on File Type Date Recorded Patient Band Edger Expl anation ADVANCE DIRECTIVE 08/02/2021 7:16 PM Power of Quill Machine Tender-Medical * LIMITED - No CPR (Latest Code Status on File) Date Activated Date Inactivated Comments 08/02/2021 5:39 PM 08/09/2021 8:31 PM Question Answer Comments Provide aggressive medical m anagement before a full cardiopulmonary arrest occurs. Use antibiotics, IV Fluids, and medical treatment unless specifically selected below: No intubation Care Teams Watershed Manager Relationship Specialty Start Date End Date Beata Reyes DO [address] [place], [place] [id number] PCP - General Family Medicine 08/02/21
--- OUTSIDE RECORDS SUMMARY | 2025-01-01 13:20 | XMS_ITS | Patient Health Record ---
Author Organization [facility] Address [address] [place], [place] [address] Care Team Providers Care Rug Repairer Name Role Phone Jaison Bojorquez Primary Care Provider UnavailJose Gustafson Unavailable [phone] Migration, Provider Unavailable Unavailable Allergies No Known Allergies Reason For Referral No Information Medications Medication SIG (Take, Route, Frequency, Duration) Notes Start Date End Date Status Ambien 5 MG 1 tab(s) orally once a day (at bedtime) prn Active Gabapentin 300 MG 1 cap(s) orally 3 times a day Active Albuterol Sulfate (2.5 MG/3ML) 0.083% 3 mL inhaled every 6 hours prn Active Levoxyl 75 MCG 1 tab(s) orally once a day Active Benadryl Allergy 25 MG 1 cap(s) orally 3 times a day prn Active NASONEX 50 MCG/INH 2 SPRAY(S) INTRANASALLY ONCE A DAY *Please review for potential replacement for e-prescription and drug interaction check* Active Sudafed 30 MG 1 tab(s) orally ever y 6 hours prn Active Centrum Silver - 1 tab(s) orally once a day Active Ipratropium Eddington 21 MCG/INH 2 SPRAY(S) INTRANASALLY/ B/L 3 TIMES A DAY for 30 DAYS *Please review and pick correct strength-formulati on from [employer] options. If intended option is not shown, discontinue and re-order from Quick Search* 11/14/2017 Active CITRACAL *Please review f or potential replacement for e-prescription and drug interaction check* Active Calcium 600 + D 600 MG-200 UNITS 1 TAB(S) ORALLY 3 TIMES A DAY *Please review and pick correct strength-formulati on from [employer] options. If intended option is not shown, discontinue and re-order from Quick Search* Active Vitamin D (Ergocalciferol) 1.25 MG (91585 UT) 1 cap(s) orally 2 times a week Active Ipratropium Eddington 21 MCG/INH 2 SPRAY(S) IN EACH NOSTRIL 3 TIMES A DAY for 30 DAYS *Please review and pick correct strength-formulati on from [employer] options. If intended option is not shown, discontinue and re-order from Quick Search* 12/10/2019 Active CALTRATE 600 MG 2 TAB(S) ORALLY 3 TIMES A DAY *Please review for potential replacement for e-prescription and drug interaction check* Active Singulair 10 MG 1 tab(s) orally once a day (in the evening) for 90 days Active Vitamin D3 10 MCG (400 UNIT) 2 tab(s) orally once a day Active ZyrTEC Allergy 10 MG 1 tab(s) orally once a day for 90 days Active Azelastine HCl 137 MCG/SPRAY 2 spray(s) intranasally 2 times a day for 30 day(s) 08/09/2016 Active Prolia 60 MG/ML 0 subcutaneously every 6 months Active ASPRIN 81 MG *Please review f or potential replacement for e-prescription and drug interaction check* Active Immunizations Vaccine Route Administration Date Status Comme nts Influenza Unknown 08/09/2016 Administered Problems Problem Type SNOMED Code ICD Code Onset Dates Problem Status W/U Status Risk Notes Problem Cough (19112197) Cough (R05) Active confirmed Problem Allergic rhinitis (83908791) Allergic rhinitis, unspecified (J30.9) Active confirmed Problem Feeling of lump in throat (finding) (284699731) 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) Active confirmed Problem Chronic rhinitis (70105772) Chronic rhinitis (J31.0) Active confirmed Problem Chronic sinusitis (24485514) Chronic sinusitis, unspecified (J32.9) Active confirmed Problem Hypertrophy of nasal turbinates (36207524) Hypertrophy of nasal turbinates (J34.3) Active confirmed Problem Gastroesophageal reflux disease (327272250) Gastro-esophag eal reflux disease without esophagitis-La ryngopharyngea l Reflux (K21.9) Active confirmed Problem Autoimmune thyroiditis (27392327) Autoimmune thyroiditis (E06.3) Active confirmed Encounters Encounter Location Date Provider Diagnosis [facility] [address] [place], [place] [id number] 07/05/2024 Provider Migration Allergic rhinitis, unspecified J30.9 Assessments Encounter Date Diagnosis (ICD Code) Assessment Notes Treatment Notes Treatment Clinical Notes Section Notes 07/05/2024 Allergic rhinitis, unspecified (ICD-10 - J30.9) Plan Of Treatment No Information Insurance Providers Payer Name Payer Address Payer Phone Subscriber Number Group Number Insured Name Patient Relationship to Insured Coverage Start Date Coverage End Date [facility] [address] [place] [address] [id number] Marielle Rios Self - patient is the insured 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
--- OUTSIDE RECORDS SUMMARY | 2025-01-01 13:20 | XMS_ITS | Continuity of Care Document ---
Author Organization [facility] Address [address] [facility] [address] [place] [address] Phone Care Team Providers Care Real Estate Account Executive Name Role Phone Mg OD, Keron Unavailable [...] Diagnoses Date Provider Providers Copied on Encounter [facility], [address], [place], [place], [address], [place] tel:[phone] SEC [facility] No Information Sep- 5-201 0 Mg OD Keron. [address], [place], [address], [place]. tel:[phone] Office/outpat ient Visit, Est [facility], [address], [place], [place], [address], [place] tel:[phone] [facility] No Information Sep-1 1-201 0 Mg OD Keron. [address], [place], [place], [facility], [place]. tel:[phone] [facility], [address], [place], [place], [address], [place] tel:[phone] [facility] No Information Sammy-1 0-201 0 Mg OD Keron. [address], [place], [facility], [place]. tel:[phone] [facility], [address] [place] [address] [address], [place], [place], [address], [place] tel:[phone] [facility] No Information May-0 8-201 0 Mg OD Keron. [address], [place], [facility], [place]. tel:[phone] Office/outpat ient Visit, [facility], [address] [place] [address] [address], [place], [place], [address], [place] tel:[phone] [facility] No Information Apr-2 4-201 0 Mg OD Keron. [address], [place], [facility], [place]. tel:[phone] [facility], [address], [place], [place], [address], [place] tel:[phone] [facility] No Information Apr-1 0-201 0 Mg OD Keron. [address], [place], [facility], [place]. tel:[phone] [facility], [address], [place], [place], [address], [place] tel:[phone] [facility] No Information Mar-2 7-201 0 Mg OD Keron. [address], [place], [facility], [place]. tel:[phone] [facility], [address] [place] [address] [address], [place], [place], [address], tel:[phone] [facility] No Information Oct-3 0-200 9 Mg OD Keron. [address], [place], [facility], [place]. tel:[phone] [facility], [address] [place] [address] [address], [place], [place], [address], tel:[phone] [facility] No Information Oct-2 3-200 9 Mg OD Keron. [address] [facility] [address], [place], [facility], . tel:[phone] [facility], [address] [place] [address] [address], [place], [place], [address], tel:[phone] [facility] No Information Aug-2 8-200 9 Mg OD Keron. [address] [facility] [address], [place], [facility], [place]. tel:[phone] [facility], [address], [place], [place], [address], [place] tel:[phone] [facility] No Information Aug-2 1-200 9 Mg OD Keron. [address], [place], [facility], [place]. tel:[phone] [facility], [address] [place] [address] [address], [place], [place], [address], [place] tel:[phone] [facility] No Information Apr-0 1-200 8 Moody Lory. [address], [place], [facility], [place]. tel:[phone] Family History Family Member Type Diagnosis Age At Onset No Information Payers Payer name Insurance type Covered alliance party ID Authoriza tion(s) No Information Social History [...]
--- OUTSIDE RECORDS SUMMARY | 2025-01-01 13:20 | XMS_ITS | Clinical Summary ---
Author Organization [facility] Address [address] [place] [address] Care Team Providers Care Washing Machine Assembler Name Role Phone [address] Primary Care Prov ider Source Comments [facility],non-owned Affiliates and Associated Physician Practices is amultiple site organization consisting of ambulatory clinics and hospital sitesin [place], [place], [place] and [place]. This disclosure is being madepursuant to the Care Everywhere program and may not contain all information available regarding this patient. Last updated 18.[facility] Allergies Active Allergy Reactions Criticality Noted Date Comments Tetracycline Psychiatric Medium 08/09/2016 Social History Tobacco Use Types Packs/Day Years Used Date Smoking Tobacco: Never Assessed Comments Unknown Sex and Gender Information Value Date Recorded Sex Assigned at Not on file Legal Sex Female 6:17 AM SENIOR OUTSIDE SALES REPRESENTATIVE Gender Identity Not on file Sexual Orientation [...] patient's age to complete this topic Insurance [facility] Care Teams Washing Machine Assembler Relationship Specialty Start Date End Date [facility] [address] [facility], [place] [address] PCP - General 06/24/19
--- OUTSIDE RECORDS SUMMARY | 2025-01-01 13:20 | XMS_ITS ---
Author Organization [facility] Address [address] [place], [place] [address] Care Team Providers Care Plastic Parts Fabricator Name Role Phone Jaison Bojorquez Primary Care Provider UnavailJose Gustafson Unavailable [phone] Migration, Provider Unavailable Unavailable REASON FOR VISIT Mult To [facility] Conversion Encounter Medications Medication SIG (Take, Route, Frequency, Duration) Notes Start Date End Date Status Sudafed 30 MG 1 tab(s) orally ever y 6 hours prn Active Ipratropium [place] 21 MCG/INH 2 SPRAY(S) INTRANASALLY/ B/L 3 TIMES A DAY for 30 DAYS *Please review and pick correct strength-formulati on from [facility] options. If intended option is not shown, discontinue and re-order from Quick Search* 11/14/2017 Active Ipratropium [place] 21 MCG/INH 2 SPRAY(S) IN EACH NOSTRIL 3 TIMES A DAY for 30 DAYS *Please review and pick correct strength-formulati on from [facility] options. If intended option is not shown, discontinue and re-order from Quick Search* 12/10/2019 Active Singulair 10 MG 1 tab(s) orally once a day (in the evening) for 90 days Active ZyrTEC Allergy 10 MG 1 tab(s) orally once a day for 90 days Active Ambien 5 MG 1 tab(s) orally once a day (at bedtime) prn Active Albuterol Sulfate (2.5 MG/3ML) 0.083% 3 mL inhaled every 6 hours prn Active Benadryl Allergy 25 MG 1 cap(s) orally 3 times a day prn Active Vitamin D3 10 MCG (400 UNIT) 2 tab(s) orally once a day Active Prolia 60 MG/ML 0 subcutaneously every 6 months Active Centrum Silver - 1 tab(s) orally once a day Active CITRACAL *Please review f or potential replacement for e-prescription and drug interaction check* Active Calcium 600 + D 600 MG-200 UNITS 1 TAB(S) ORALLY 3 TIMES A DAY *Please review and pick correct strength-formulati on from [employer] options. If intended option is not shown, discontinue and re-order from Quick Search* Active Vitamin D (Ergocalciferol) 1.25 MG (94516 UT) 1 cap(s) orally 2 times a week Active CALTRATE 600 MG 2 TAB(S) ORALLY 3 TIMES A DAY *Please review for potential replacement for e-prescription and drug interaction check* Active Gabapentin 300 MG 1 cap(s) orally 3 times a day Active Levoxyl 75 MCG 1 tab(s) orally once a day Active NASONEX 50 MCG/INH 2 SPRAY(S) INTRANASALLY ONCE A DAY *Please review for potential replacement for e-prescription and drug interaction check* Active Azelastine HCl 137 MCG/SPRAY 2 spray(s) intranasally 2 times a day for 30 day(s) 08/09/2016 Active ASPRIN 81 MG *Please review f or potential replacement for e-prescription and drug interaction check* Active Encounters Encounter Location Date Provider Diagnosis [facility] [place] [address] [place], [place] [id number] 07/05/2024 Provider Migration Allergic rhinitis, unspecified J30.9 Assessments Encounter Date Diagnosis (ICD Code) Assessment Notes Treatment Notes Treatment Clinical Notes Section Notes 07/05/2024 Allergic rhinitis, unspecified (ICD-10 - J30.9) Plan Of Treatment Medication Medication Name Sig Start Date Stop Date Notes Ipratropium [place] 21 MCG/INH 2 SPRAY(S) IN EACH NOSTRIL 3 TIMES A DAY for 30 DAYS 12/10/2019 *Please review and pick correct strength-formulation from [employer] options. If intended option is not shown, discontinue and re-order from Quick Search* Singulair 10 MG 1 tab(s) orally once a day (in the evening) for 90 days ZyrTEC Allergy 10 MG 1 tab(s) orally once a day for 90 days Progress Notes * Marielle LEROYDOB: 7 (69 yo F)Acc No.[id number]:07/05/2024 Patient: Marielle PAULSON Provider: Georgie Soto :1955 A ge:68 Y S ex:Female Date:07/05/2024 Address:[address] [place] [address], [facility], [place] [address] Pcp:Jaison Bojorquez Subjective: * Chief Complaints: * 1 . Multum To Medispan Conversion Encounter. * Medical History: * Medications: T aking Azelastine HCl 137 MCG/SPRAY Solution 2 spray(s) intranasally 2 times a day , Taking ASPRIN 81 MG , Notes to Pharmacist: *Please review for potential replacement for e-prescription and drug interaction check*, Taking Gabapentin 300 MG Capsule 1 cap(s) orally 3 times a day , Taking Levoxyl 75 MCG Tablet 1 tab(s) orally once a day , Taking NASONEX 50 MCG/INH SPRAY 2 SPRAY(S) INTRANASALLY ONCE A DAY , Notes to Pharmacist: *Please review for potential replacement for e-prescription and drug interaction check*, Taking Centrum Silver - Tablet 1 tab(s) orally once a day , Taking CITRACAL , Notes to Pharmacist: *Please review for potential replacement for e-prescription and drug interaction check*, Taking Calcium 600 + D 600 MG-200 UNITS TABLET 1 TAB(S) ORALLY 3 TIMES A DAY , Notes to Pharmacist: *Please review and pick correct [facility]ulation [facility]. If intended option is not shown, discontinue and re-order from Quick Search*, Taking Vitamin D (Ergocalciferol) 1.25 MG (81662 UT) Capsule 1 cap(s) orally 2 times a week , Taking CALTRATE 600 MG TABLET 2 TAB(S) ORALLY 3 TIMES A DAY , Notes to Pharmacist: *Please review for potential replacement for e-prescription and drug interaction check*, Taking Vitamin D3 10 MCG (400 UNIT) Tablet 2 tab(s) orally once a day , Taking Prolia 60 MG/ML Solution Prefilled Syringe 0 subcutaneously every 6 months , Taking Ambien 5 MG Tablet 1 tab(s) orally once a day (at bedtime) , Notes to Pharmacist: prn, Taking Albuterol Sulfate (2.5 MG/3ML) 0.083% Nebulization Solution 3 mL inhaled every 6 hours , Notes to Pharmacist: prn, Taking Benadryl Allergy 25 MG Capsule 1 cap(s) orally 3 times a day , Notes to Pharmacist: prn, Taking Sudafed 30 MG Tablet 1 tab(s) orally every 6 hours , Notes to Pharmacist: prn, Taking Ipratropium [place] 21 MCG/INH SPRAY 2 SPRAY(S) INTRANASALLY/ B/L 3 TIMES A DAY , Notes to Pharmacist: *Please review and pick correct strength-formulation from [employer] options. If intended option is not shown, discontinue and re-order from Quick Search* Objective: * Vitals: * Physical Examination: Assessment: * Assessment: 1. A llergic rhinitis, unspecified - J30.9 Plan: * Treatment: 2. O thers Refill Singulair Tablet, 10 MG, 1 tab(s), orally, once a day (in the evening), 90 days, 90, Refills 3; R efill ZyrTEC Allergy Tablet, 10 MG, 1 tab(s), orally, once a day, 90 days, 90 Tablet, Refills 3. * * Electronic signature of Prov ider Migration on 01/01/2025 at 01:20 PM CDT Sign off status: Pending * Provider: Georgie montgomery Migration Date: 09/05/2023 Generated for Tish morales/Doroteo/Homer on: 0 01/01/2025 01:20 PM CDT
[2025-01-01 13:52] LABS: Alanine Aminotransferase 34 U/L (6-35); Albumin Level 4.5 g/dL (3.5-5.1); Alkaline Phosphatase 46 U/L (38-126); Anion Gap 6 mmol/L (4-12); Aspartate Amino Transferase 45 U/L (14-36); Bilirubin,Total 0.4 mg/dL (0.2-1.3); Blood Urea Nitrogen 20 mg/dL (7-17); Calcium 9.4 mg/dL (8.4-10.2); Carbon Dioxide 31 mmol/L (22-30); Chloride 106 mmol/L (98-107); Estimated Glomerular Filt Rate 58; Glucose 82 mg/dL (65-110); Potassium 4.5 mmol/L (3.4-5.0); Sodium 143 mmol/L (137-145); Total Protein 7.3 g/dL (6.3-8.2)
== END 2025-01-01 12:49 | disposition home or self-care (01) ==
PROVIDERS: Visit Provider Podiatrist Foot & Ankle Surgery
DX: Z01.818 Encounter for other preprocedural examination (principal)
CPT/HCPCS: 36415; 80053

== ENCOUNTER 2025-03-09 15:44 | Outpatient (CLI) | payer MEDICARE, OTHER, SELFPAY ==
--- OUTSIDE RECORDS SUMMARY | 2025-03-09 16:06 | XMS_ITS | Continuity of Care Document ---
Author Organization [facility] Address [address] [place] [address] Phone Care Team Providers Care Nascar Driver Name Role Phone Mg OD, Keron Unavailable [...] Diagnoses Date Provider Providers Copied on Encounter [facility], [address], [place], [place], [address], [place] tel:[phone] [facility] No Information Sep- 5-201 0 Mg OD Keron. [address] , [address], [place], [address], [place]. tel:[phone] Office/outpat ient Visit, [facility], [address], [place], [place], [address], [place] tel:[phone] [facility] No Information Sep-1 1-201 0 Mg OD Keron. [address] , [address], [place], [place], [facility], [place]. tel:[phone] [facility], [address], [place], [place], [address], [place] tel:[phone] [facility] No Information Sammy-1 0-201 0 Mg OD Keron. [address] , [address], [place], [place], [facility], [place]. tel:[phone] [facility], [address] [place] [address] [address], [place], [place], [address], [place] tel:[phone] [facility] No Information May-0 8-201 0 Mg OD Keron. [address] , [address], [place], [place], [facility], [place]. tel:[phone] Office/outpat ient Visit, [facility], [address] [place] [address] [address], [place], [place], [address], [place] tel:[phone] [facility] No Information Apr-2 4-201 0 Mg OD Keron. [address], [place], [facility], [place]. tel:[phone] [facility], [address], [place], [place], [address], [place] tel:[phone] [facility] No Information Apr-1 0-201 0 Mg OD Keron. [address], [place], [facility], [place]. tel:[phone] [facility], [address], [place], [place], [address], [place] tel:[phone] [facility] No Information Mar-2 7-201 0 Mg OD Keron. [address] , [address], [place], [facility], [place]. tel:[phone] [facility], [address] [place] [address] [address], [place], [place], [address], tel:[phone] [facility] No Information Oct-3 0-200 9 Mg OD Keron. [address], [place], [facility], [place]. tel:[phone] [facility], [address] [place] [address] [address], [place], [place], [address], tel:[phone] [facility] No Information Oct-2 3-200 9 Mg OD Keron. [address] [facility] , [address], [place], [facility], . tel:[phone] [facility], [address] [place] [address] [address], [place], [place], [address], tel:[phone] [facility] No Information Aug-2 8-200 9 Mg OD Keron. [address] [facility] , [address], [place], [facility], [place]. tel:[phone] [facility], [address], [place], [place], [address], [place] tel:[phone] [facility] No Information Aug-2 1-200 9 Mg OD Keron. [address], [place], [facility], [place]. tel:[phone] [facility], [address] [place] [address] [address], [place], [place], [address], [place] tel:[phone] [facility] No Information Apr-0 1-200 8 Moody Lory. [address], [place], [facility], [place]. tel:[phone] Family History Family Member Type Diagnosis Age At Onset No Information Payers Payer name Insurance type Covered constitution party ID Authoriza tion(s) No Information Social [...]
--- OUTSIDE RECORDS SUMMARY | 2025-03-09 16:06 | XMS_ITS | Clinical Summary ---
Author Organization [facility] Address [address] [place] [address] Care Team Providers Care Yarding Engineer Name Role Phone Beata Reyes DO Primary [...] Most Recently Relevant to Health Maintenance Insurance [facility] Care Teams Yarding Engineer Relationship Specialty Start Date End Date Beata Reyes DO [address] [address] [place] [id number] PCP - General FAMILY PRACTICE 04/05/20
--- OUTSIDE RECORDS SUMMARY | 2025-03-09 16:06 | XMS_ITS | Patient Health Record ---
Author Organization [facility] Address [address] [place], [place] [address] Care Team Providers Care Spot Welder Name Role Phone Jaison Bojorquez Primary Care Provider Jose Sapp Unavailable [phone] Migration, Provider Unavailable Unavailable Allergies No Known [...] tab(s) orally once a day Active Ipratropium [place] 21 MCG/INH 2 SPRAY(S) INTRANASALLY/ B/L 3 TIMES A DAY; Duration: 30 DAYS *Please review and pick correct strength-formulati on from [employer] options. If intended option is not shown, discontinue and re-order from Quick Search* 11/14/2017 Active CITRACAL *Please review f or potential replacement for e-prescription and drug interaction check* Active Calcium 600 + D 600 MG-200 UNITS 1 TAB(S) ORALLY 3 TIMES A DAY *Please review and pick correct strength-formulati on from Diaferon options. If intended option is not shown, discontinue and re-order from Quick Search* Active Vitamin D (Ergocalciferol) 1.25 MG (16222 UT) 1 cap(s) orally 2 times a week Active Ipratropium [place] 21 MCG/INH 2 SPRAY(S) IN EACH NOSTRIL 3 TIMES A DAY; Duration: 30 DAYS *Please review and pick correct strength-formulati on from Diaferon options. If intended option is not shown, discontinue and re-order from Quick Search* 12/10/2019 Active CALTRATE 600 MG 2 TAB(S) ORALLY 3 TIMES A DAY *Please review for potential replacement for e-prescription and drug interaction check* Active Singulair 10 MG 1 tab(s) orally once a day (in the evening); Duration: 90 days Active Vitamin D3 10 MCG (400 UNIT) 2 tab(s) orally once a day Active ZyrTEC Allergy 10 MG 1 tab(s) orally once a day; Duration: 90 days Active Azelastine HCl 137 MCG/SPRAY 2 spray(s) intranasally 2 times a day; Duration: 30 day(s) 08/09/2016 Active Prolia 60 MG/ML 0 subcutaneously every 6 months Active ASPRIN 81 MG *Please review f or potential replacement for e-prescription and drug interaction check* Active Immunizations Vaccine Route Administration Date Status Comme nts Influenza Unknown 08/09/2016 Administered Problems Problem Type SNOMED Code ICD Code Onset Dates Problem Status W/U Status Risk Notes Problem Cough (56310206) Cough (R05) Active confirmed Problem Allergic rhinitis (58063630) Allergic rhinitis, unspecified (J30.9) Active confirmed Problem Feeling of lump in throat (finding) (799067137) 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) Active confirmed Problem Chronic rhinitis (02821226) Chronic rhinitis (J31.0) Active confirmed Problem Chronic sinusitis (88565183) Chronic sinusitis, unspecified (J32.9) Active confirmed Problem Hypertrophy of nasal turbinates (96488534) Hypertrophy of nasal turbinates (J34.3) Active confirmed Problem Gastroesophageal reflux disease (411874378) Gastro-esophag eal reflux disease without esophagitis-La ryngopharyngea l Reflux (K21.9) Active confirmed Problem Autoimmune thyroiditis (97273754) Autoimmune thyroiditis (E06.3) Active confirmed Encounters Encounter Location Date Provider Diagnosis [facility] [place] [address] [place], [place] [address] 07/05/2024 Provider Migration Allergic rhinitis, unspecified J30.9 Assessments Encounter Date Diagnosis (ICD Code) Assessment Notes Treatment Notes Treatment Clinical Notes Section Notes 07/05/2024 Allergic rhinitis, unspecified (ICD-10 - J30.9) Plan Of Treatment No Information Insurance Providers Payer Name Payer Address Payer Phone Subscriber Number Group Number Insured Name Patient Relationship to Insured Coverage Start Date Coverage End Date [facility] [address] [place] [address] [id number] Marielle Rios Self - patient is the insured [facility] [address] [place] [address] [phone] [id number] Marielle Rios Self - patient is the insured Medical (General) History Medical History History ICD Code Pertinent Medical History: S inusitis, History of Allergies, Asthma, Thyroid problems, Bronchitis osteoporosis, spinal stenosi s c6/c7 c7/t1, degenerative disc buldge, thoracic outlet syndrome, 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
--- OUTSIDE RECORDS SUMMARY | 2025-03-09 16:07 | XMS_ITS ---
Author Organization [facility] Address [address] [place], [place] [address] Care Team Providers Care Visual Basic .Net Developer Name Role Phone Jaison Bojorquez Primary Care Provider UnavailJose Gustafson Unavailable [phone] Migration, Provider Unavailable Unavailable REASON FOR VISIT Multum To [facility] Conversion Encounter Medications Medication SIG (Take, Route, Frequency, Duration) Notes Start Date End Date Status Sudafed 30 MG 1 tab(s) orally ever y 6 hours prn Active Ipratropium [place] 21 MCG/INH 2 SPRAY(S) INTRANASALLY/ B/L 3 TIMES A DAY; Duration: 30 DAYS *Please review and pick correct strength-formulati on from HASH options. If intended option is not shown, discontinue and re-order from Quick Search* 11/14/2017 Active Ipratropium [place] 21 MCG/INH 2 SPRAY(S) IN EACH NOSTRIL 3 TIMES A DAY; Duration: 30 DAYS *Please review and pick correct strength-formulati on from HASH options. If intended option is not shown, discontinue and re-order from Quick Search* 12/10/2019 Active Singulair 10 MG 1 tab(s) orally once a day (in the evening); Duration: 90 days Active ZyrTEC Allergy 10 MG 1 tab(s) orally once a day; Duration: 90 days Active Ambien 5 MG 1 [...] review and pick correct strength-formulati on from HASH options. If intended option is not shown, discontinue and re-order from Quick Search* Active Vitamin D (Ergocalciferol) 1.25 MG (33685 UT) 1 cap(s) orally 2 times a [...] Provider Diagnosis [facility] [place] [address] [facility] [address] [place], [place] [id number] 07/05/2024 Provider Migration Allergic rhinitis, unspecified J30.9 Assessments Encounter Date Diagnosis (ICD Code) Assessment Notes Treatment Notes Treatment Clinical Notes Section Notes 07/05/2024 Allergic rhinitis, unspecified (ICD-10 - J30.9) Plan Of Treatment Medication Medication Name Sig Start Date Stop Date Notes Ipratropium [place] 21 MCG/INH 2 SPRAY(S) IN EACH NOSTRIL 3 TIMES A DAY; Duration: 30 DAYS 12/10/2019 *Please review and pick correct strength-formulation from HASH options. If intended option is not shown, discontinue and re-order from Quick Search* Singulair 10 MG 1 tab(s) orally once a day (in the evening); Duration: 90 days ZyrTEC Allergy 10 MG 1 tab(s) orally once a day; Duration: 90 days Progress Notes * Marielle LEROYDOB: 7 (69 yo F)Acc No.[id number]:07/05/2024 Patient: Marielle PAULSON Provider: Georgie Soto :1955 A ge:68 Y S ex:Female Date:07/05/2024 Address:[address] [place] [address], [facility], [facility] Pcp:Jaison Bojorquez Subjective: * Chief Complaints: * [facility] . [facility] En[facility]. * Medical History: * Medications: [...] *Please review and pick correct strength-formulation [facility]. If intended option is not shown, discontinue and re-order from Quick Search*, Taking Vitamin D (Ergocalciferol) 1.25 MG (21663 UT) Capsule 1 cap(s) orally 2 times [...] , Notes to Pharmacist: prn, Taking Ipratropium [place] 21 MCG/INH SPRAY 2 SPRAY(S) INTRANASALLY/ B/L 3 TIMES A DAY , Notes to Pharmacist: *Please review and pick correct strength-formulation from HASH options. If intended option is not shown, [...] 90 days, 90 Tablet, Refills 3. * Images: * Electronic signature of Prov ider Migration on 03/09/2025 at 04:06 PM CDT Sign off status: Pending * Provider: Georgie montgomery Migration Date: 09/05/2023 Generated for Tish morales/Doroteo/Homer on: 03/09/2025 04:06 PM CDT
--- OUTSIDE RECORDS SUMMARY | 2025-03-09 16:07 | XMS_ITS | Clinical Summary ---
Author Organization [facility] Address [address] [place] [address] Care Team Providers Care Dictaphone Mechanic Name Role Phone EricBeata zarco Primary Care [...] mcg tablet Take 75 mcg by mouth mill washer before breakfast Active multivit-min/ir on/folic/lutein (CENTRUM SILVER [...] on file Legal Sex Female 12:50 AM DENTAL LABORATORY TECHNICIAN APPRENTICE Gender Identity Not on file Sexual Orientation Not on file Obstetrics History Last Filed Vital Signs Vital Sign Reading Time Taken Comments Blood Pressure 120/62 09/01/2021 2:58 PM DENTAL LABORATORY TECHNICIAN APPRENTICE Pulse 82 09/01/2021 2:58 PM DENTAL LABORATORY TECHNICIAN APPRENTICE Temperature 36.4 C (97.6 F) 09/01/2021 2:58 PM DENTAL LABORATORY TECHNICIAN APPRENTICE Respiratory Rate 18 09/01/2021 2:58 PM DENTAL LABORATORY TECHNICIAN APPRENTICE Oxygen Saturation 96% 09/01/2021 2:58 PM DENTAL LABORATORY TECHNICIAN APPRENTICE Inhaled Oxygen Concentration - - Weight 70.3 kg (155 lb) 09/01/2021 2:58 PM DENTAL LABORATORY TECHNICIAN APPRENTICE Height 157.5 cm (5' 2) 09/01/2021 2:58 PM DENTAL LABORATORY TECHNICIAN APPRENTICE Body Mass Index 28.35 09/01/2021 2:58 PM DENTAL LABORATORY TECHNICIAN APPRENTICE Plan of Treatment Not on file Insurance [place] [facility] Advance Directives For more information, please contact: [phone] Documents on File Type Date Recorded Patient Geoscience Technician Expl anation ADVANCE DIRECTIVE 08/02/2021 7:16 PM Power of Felt [employer] * LIMITED - No CPR (Latest Code Status on File) Date Activated Date Inactivated Comments 08/02/2021 5:39 PM 08/09/2021 8:31 PM Question Answer Comments Provide aggressive medical m anagement before a full cardiopulmonary arrest occurs. Use antibiotics, IV Fluids, and medical treatment unless specifically selected below: No intubation Care Teams Dictaphone Mechanic Relationship Specialty Start Date End Date Beata Reyes DO [address] [place] [address] PCP - General Family Medicine 08/02/21
--- OUTSIDE RECORDS SUMMARY | 2025-03-09 16:07 | XMS_ITS | Clinical Summary ---
Author Organization [facility] Address [address] [place] [address] Care Team Providers Care Shed Workers Supervisor Name Role Phone [address] Primary Care Prov ider Source Comments [facility],non-owned Affiliates and Associated Physician Practices is amultiple site organization consisting of ambulatory clinics and hospital sitesin [place], [place], [place] and [place]. This disclosure is being madepursuant to the Care Everywhere program and may not contain all information available regarding this patient. Last updated 18.[facility] Allergies Active Allergy Reactions Criticality Noted Date Comments Tetracycline Psychiatric Medium 08/09/2016 Social History Tobacco Use Types Packs/Day Years Used Date Smoking Tobacco: Never Assessed Comments Unknown Sex and Gender Information Value Date Recorded Sex Assigned at Not on file Legal Sex Female 6:17 AM HAT BLOCKING OPERATOR Gender Identity Not on file Sexual Orientation [...] season) 2024 DEPRESSION SCREENING 07/23/2024 INFLUENZA VACCINE (#1) 2025 Respiratory Syncytial Virus (RSV) Vaccine Pt: [...] patient's age to complete this topic Insurance [facility] Care Teams Shed Workers Supervisor Relationship Specialty Start Date End Date [facility] [address] [facility], [place] [address] PCP - General 06/24/19
[2025-03-09 17:19] LABS: Thyroid Stimulating Hormone 1.470 uIU/mL (0.465-4.680)
[2025-03-09 17:47] LABS: Free T4 Free Thyroxine 1.13 ng/dL (0.78-2.19)
== END 2025-03-09 15:45 | disposition home or self-care (01) ==
PROVIDERS: Visit Provider Internal Medicine Endocrinology, Diabetes & Metabolism
DX: E03.9 Hypothyroidism, unspecified (principal)
CPT/HCPCS: 36415; 84439; 84443

== ENCOUNTER 2025-07-07 11:20 | Outpatient (CLI) | payer MEDICARE, OTHER, SELFPAY ==
--- OUTSIDE RECORDS SUMMARY | 2024-07-05 15:30 | XMS_ITS ---
Author Organization [facility] Address [address] [place], [place] [id number] Care Team Providers Care Park Worker Supervisor Name Role Phone Jaison Bojorquez Primary Care Provider UnavailJose Gustafson Unavailable [phone] Migration, Provider Unavailable Unavailable REASON FOR VISIT [facility] Conversion Encounter Medications Medication SIG (Take, Route, Frequency, Duration) Notes Start Date End Date Status Sudafed 30 MG Tablet 1 tab(s) orally every 6 hours prn Active Ipratropium [place] 21 MCG/INH SPRAY 2 SPRAY(S) INTRANASALLY/ B/L 3 TIMES A DAY; Duration: 30 DAYS *Please review and pick correct strength-formulati on from [employer] options. If intended option is not shown, discontinue and re-order from Quick Search* 11/14/2017 Active Ipratropium [place] 21 MCG/INH SPRAY 2 SPRAY(S) IN EACH NOSTRIL 3 TIMES A DAY; Duration: 30 DAYS *Please review and pick correct strength-formulati on from [employer] options. If intended option is not shown, discontinue and re-order from Quick Search* 12/10/2019 Active Singulair 10 MG Tablet 1 tab(s) orally once a day (in the evening); Duration: 90 days Active ZyrTEC Allergy 10 MG Tablet 1 tab(s) orally once a day; Duration: 90 days Active Ambien 5 MG Tablet 1 tab(s) orally once a day (at bedtime) prn Active Albuterol Sulfate (2.5 MG/3ML) 0.083% Nebulization Solution 3 mL inhaled every 6 hours prn Active Benadryl Allergy 25 MG Capsule 1 cap(s) orally 3 times a day prn Active Vitamin D3 10 MCG (400 UNIT) Tablet 2 tab(s) orally once a day Active Prolia 60 MG/ML Solution Prefilled Syringe 0 subcutaneously every 6 months Active Centrum Silver - Tablet 1 tab(s) orally once a day Active CITRACAL *Please review f or potential replacement for e-prescription and drug interaction check* Active Calcium 600 + D 600 MG-200 UNITS TABLET 1 TAB(S) ORALLY 3 TIMES A DAY *Please review and pick correct strength-formulati on from [employer] options. If intended option is not shown, discontinue and re-order from [employer] Search* Active Vitamin D (Ergocalciferol) 1.25 MG (53256 UT) Capsule 1 cap(s) orally 2 times a week Active CALTRATE 600 MG TABLET 2 TAB(S) ORALLY 3 TIMES A DAY *Please review for potential replacement for e-prescription and drug interaction check* Active Gabapentin 300 MG Capsule 1 cap(s) orally 3 times a day Active Levoxyl 75 MCG Tablet 1 tab(s) orally once a day Active NASONEX 50 MCG/INH SPRAY 2 SPRAY(S) INTRANASALLY ONCE A DAY *Please review for potential replacement for e-prescription and drug interaction check* Active Azelastine HCl 137 MCG/SPRAY Solution 2 spray(s) intranasally 2 times a day; Duration: 30 day(s) 08/09/2016 Active ASPRIN 81 MG *Please review f or potential replacement for e-prescription and drug interaction check* Active Encounters Encounter Location Date Provider Diagnosis [facility] [address] [id number] 07/05/2024 Provider Migration Allergic rhinitis, unspecified J30.9 Assessments Encounter Date Diagnosis (ICD Code) Assessment Notes Treatment Notes Treatment Clinical Notes Section Notes 07/05/2024 Allergic rhinitis, unspecified (ICD-10 - J30.9) Plan Of Treatment Medication Medication Name Sig Start Date Stop Date Notes Ipratropium [place] 21 MCG/INH SPRAY 2 SPRAY(S) IN EACH NOSTRIL 3 TIMES A DAY; Duration: 30 DAYS 12/10/2019 *Please review and pick correct strength-formulation from [employer] options. If intended option is not shown, discontinue and re-order from Quick Search* Singulair 10 MG Tablet 1 tab(s) orally once a day (in the evening); Duration: 90 days ZyrTEC Allergy 10 MG Tablet 1 tab(s) orally once a day; Duration: 90 days Progress Notes * Marielle LEROYDOB: 7 (69 yo F)Acc No.[id number]:07/05/2024 Patient: Marielle Juan Provider: Georgie montgomery Migration :1955 A ge:68 Y S ex:Female Date:07/05/2024 Address:[address] [place] [address], [facility], [id number] Pcp:Jaison Bojorquez Subjective: * Chief Complaints: * [facility] * Medications: T akingAzelastine HCl 137 MCG/SPRAY Solution 2 spray(s) intranasally 2 times a day ASPRIN 81 MG , Notes to Pharmacist: *Please review for potential replacement for e-prescription and drug interaction check*Gabapentin 300 MG Capsule 1 cap(s) orally 3 times a day Levoxyl 75 MCG Tablet 1 tab(s) orally once a day NASONEX 50 MCG/INH SPRAY 2 SPRAY(S) INTRANASALLY ONCE A DAY , Notes to Pharmacist: *Please review for potential replacement for e-prescription and drug interaction check*Centrum Silver - Tablet 1 tab(s) orally once a day CITRACAL , Notes to Pharmacist: *Please review for potential replacement for e-prescription and drug interaction check*Calcium 600 + D 600 MG-200 UNITS TABLET 1 TAB(S) ORALLY 3 TIMES A DAY , Notes to Pharmacist: *Please review and pick correct strength-formulation from [facility] options. If intended option is not shown, discontinue and re-order from Quick Search*Vitamin D (Ergocalciferol) 1.25 MG (12225 UT) Capsule 1 cap(s) orally 2 times a week CALTRATE 600 MG TABLET 2 TAB(S) ORALLY 3 TIMES A DAY , Notes to Pharmacist: *Please review for potential replacement for e-prescription and drug interaction check*Vitamin D3 10 MCG (400 UNIT) Tablet 2 tab(s) orally once a day Prolia 60 MG/ML Solution Prefilled Syringe 0 subcutaneously every 6 months Ambien 5 MG Tablet 1 tab(s) orally once a day (at bedtime) , Notes to Pharmacist: prnAlbuterol Sulfate (2.5 MG/3ML) 0.083% Nebulization Solution 3 mL inhaled every 6 hours , Notes to Pharmacist: prnBenadryl Allergy 25 MG Capsule 1 cap(s) orally 3 times a day , Notes to Pharmacist: prnSudafed 30 MG Tablet 1 tab(s) orally every 6 hours , Notes to Pharmacist: prnIpratropium [place] 21 MCG/INH SPRAY 2 SPRAY(S) INTRANASALLY/ B/L 3 TIMES A DAY , Notes to Pharmacist: *Please review and pick correct strength-formulation from [employer] options. If intended option is not shown, discontinue and re-order from Quick Search*Taking Azelastine HCl 137 MCG/SPRAY Solution 2 spray(s) intranasally 2 times a day Taking ASPRIN 81 MG , Notes to Pharmacist: *Please review for potential replacement for e-prescription and drug interaction check*Taking Gabapentin 300 MG Capsule 1 cap(s) orally 3 times a day Taking Levoxyl 75 MCG Tablet 1 tab(s) orally once a day Taking NASONEX 50 MCG/INH SPRAY 2 SPRAY(S) INTRANASALLY ONCE A DAY , Notes to Pharmacist: *Please review for potential replacement for e-prescription and drug interaction check*Taking Centrum Silver - Tablet 1 tab(s) orally once a day Taking CITRACAL , Notes to Pharmacist: *Please review for potential replacement for e-prescription and drug interaction check*Taking Calcium 600 + D 600 MG-200 UNITS TABLET 1 TAB(S) ORALLY 3 TIMES A DAY , Notes to Pharmacist: *Please review and pick correct strength-formulation from [employer] options. If intended option is not shown, discontinue and re-order from Quick Search*Taking Vitamin D (Ergocalciferol) 1.25 MG (66666 UT) Capsule 1 cap(s) orally 2 times a week Taking CALTRATE 600 MG TABLET 2 TAB(S) ORALLY 3 TIMES A DAY , Notes to Pharmacist: *Please review for potential replacement for e-prescription and drug interaction check*Taking Vitamin D3 10 MCG (400 UNIT) Tablet 2 tab(s) orally once a day Taking Prolia 60 MG/ML Solution Prefilled Syringe 0 subcutaneously every 6 months Taking Ambien 5 MG Tablet 1 tab(s) orally once a day (at bedtime) , Notes to Pharmacist: prnTaking Albuterol Sulfate (2.5 MG/3ML) 0.083% Nebulization Solution 3 mL inhaled every 6 hours , Notes to Pharmacist: prnTaking Benadryl Allergy 25 MG Capsule 1 cap(s) orally 3 times a day , Notes to Pharmacist: prnTaking Sudafed 30 MG Tablet 1 tab(s) orally every 6 hours , Notes to Pharmacist: prnTaking Ipratropium [place] 21 MCG/INH SPRAY 2 SPRAY(S) INTRANASALLY/ B/L 3 TIMES A DAY , Notes to Pharmacist: *Please review and pick correct strength-formulation from [employer] options. If intended option is not shown, discontinue and re-order from Quick Search* Assessment: * Assessment: 1. A llergic rhinitis, unspecified - J30.9 Plan: * Treatment: 2. O thers Refill Singulair Tablet, 10 MG, 1 tab(s), orally, once a day (in the evening), 90 days, 90, Refills 3; R efill ZyrTEC Allergy Tablet, 10 MG, 1 tab(s), orally, once a day, 90 days, 90 Tablet, Refills 3. * Electronic signature of Prov ider Migration on 07/07/2025 at 01:50 PM MILL ROLL OPERATOR Sign off status: Pending * Provider: Georgie montgomery Migration Date: 09/05/2023 Generated for Tish morales/Dortoeo/Homer on: 09/07/2024 01:50 PM MILL ROLL OPERATOR
--- NOTE | 2025-07-07 | ECG_ITS ---
Test Date: 2025-07-07 12:16:25 Measurements Intervals [place] Rate: 69 P: 60 GA: 146 QRS: 10 QRSD: 85 T: 31 QT: 375 QTc: 403 Interpretive Statements SINUS RHYTHM BORDERLINE ST-T WAVE ABNORMALITY- ANTERIOR LEADS BASELINE ARTIFACT- I, II, III, AVR, AVL, AVF, V1, V3 BORDERLINE ECG No previous ECG available for comparison Electronically Signed On 07-07-2025 13:00:10 CONCERT PIANIST by Ted Mattson D.O.
[2025-07-07 12:57] LABS: Alanine Aminotransferase 29 U/L (6-35); Albumin Level 4.2 g/dL (3.5-5.1); Alkaline Phosphatase 56 U/L (38-126); Anion Gap 1 mmol/L (4-12); Aspartate Amino Transferase 49 U/L (14-36); Bilirubin,Total 0.3 mg/dL (0.2-1.3); Blood Urea Nitrogen 13 mg/dL (7-17); Calcium 9.7 mg/dL (8.4-10.2); Carbon Dioxide 32 mmol/L (22-30); Chloride 106 mmol/L (98-107); Estimated Glomerular Filt Rate 57; Glucose 94 mg/dL (65-110); Potassium 4.9 mmol/L (3.4-5.0); Sodium 139 mmol/L (137-145); Total Protein 6.8 g/dL (6.3-8.2)
[2025-07-07 13:29] LABS: Thyroid Stimulating Hormone 1.330 uIU/mL (0.465-4.680)
--- OUTSIDE RECORDS SUMMARY | 2025-07-07 13:50 | XMS_ITS | Clinical Summary ---
Author Organization [facility] Address [address] [place] [id number] Care Team Providers Care Geology Scientist Name Role Phone Beata Reyes DO Primary Care Provider [phone] Social History Tobacco Use Types Packs/Day Years [...] of 2) 2006 COVID-19 Vaccine ( - 2024-2 6 season) 2025 Influenza Adult (#1) 2025 RSV Immunization or 60+ Years (1 - 1-dose 75+ series) 11/07/2031 Dexa Scan (General) Completed 04/09/2020 Hepatitis A Vaccines Aged Out No long er eligible based on patient's age to complete this topic Meningococcal B Vaccine Aged Out No l [...] Most Recently Relevant to Health Maintenance Insurance [facility] Care Teams Geology Scientist Relationship Specialty Start Date End Date Beata Reyes DO [address] [facility] [address] [place] [address] PCP - General FAMILY PRACTICE 04/05/20
--- OUTSIDE RECORDS SUMMARY | 2025-07-07 13:50 | XMS_ITS | Clinical Summary ---
Author Organization [facility] Address [address] [place] [address] Care Team Providers Care Carton Catcher Name Role Phone [address] Primary Care Prov ider Source Comments [facility],non-owned Affiliates and Associated Physician Practices is amultiple site organization consisting of ambulatory clinics and hospital sitesin [place], [place], [place] and [place]. This disclosure is being madepursuant to the Care Everywhere program and may not contain all information available regarding this patient. Last updated 18.[facility] Allergies Active Allergy Reactions Criticality Noted Date Comments Tetracycline Psychiatric Medium 08/09/2016 Social History Tobacco Use Types Packs/Day Years Used Date Smoking Tobacco: Never Assessed Comments Unknown Sex and Gender Information Value Date Recorded Sex Assigned at Not on file Legal Sex Female 6:17 AM ROUGH ROUNDER Gender Identity Not on file Sexual Orientation [...] 2006 ZOSTER VACCINE (1 of 2) 2006 DEPRESSION SCREENING 07/23/2024 COVID-19 VACCINE (1 - 2024-2 6 season) 2025 INFLUENZA VACCINE (#1) 2025 Respiratory Syncytial Virus [...] age to complete this topic Insurance [facility] Care Teams Carton Catcher Relationship Specialty Start Date End Date [facility] [address] [facility], [place] [address] PCP - General 06/24/19
--- OUTSIDE RECORDS SUMMARY | 2025-07-07 13:50 | XMS_ITS | Clinical Summary ---
Author Organization [facility] Address [address] [place] [address] Care Team Providers Care Phonograph Needle Tip Maker Name Role Phone EricBeata zarco Primary Care [...] mcg tablet Take 75 mcg by mouth founder president and ceo before breakfast Active multivit-min/ir on/folic/lutein (CENTRUM SILVER [...] on file Legal Sex Female 12:50 AM JUNIOR ENGINEER Gender Identity Not on file Sexual Orientation Not on file Last Filed Vital Signs Vital Sign Reading Time Taken Comments Blood Pressure 120/62 09/01/2021 2:58 PM JUNIOR ENGINEER Pulse 82 09/01/2021 2:58 PM JUNIOR ENGINEER Temperature 36.4 C (97.6 F) 09/01/2021 2:58 PM JUNIOR ENGINEER Respiratory Rate 18 09/01/2021 2:58 PM JUNIOR ENGINEER Oxygen Saturation 96% 09/01/2021 2:58 PM JUNIOR ENGINEER Inhaled Oxygen Concentration - - Weight 70.3 kg (155 lb) 09/01/2021 2:58 PM JUNIOR ENGINEER Height 157.5 cm (5' 2) 09/01/2021 2:58 PM JUNIOR ENGINEER Body Mass Index 28.35 09/01/2021 2:58 PM JUNIOR ENGINEER Plan of Treatment Not on file Insurance [employer] [place] FOR LIFE FOR LIFE [facility] Advance Directives For more information, please contact: [phone] Documents on File Type Date Recorded Patient Manager Corporate Strategy Expl anation ADVANCE DIRECTIVE 08/02/2021 7:16 PM Power of Donor Services Coordinator-Medical * LIMITED - No CPR (Latest Code Status on File) Date Activated Date Inactivated Comments 08/02/2021 5:39 PM 08/09/2021 8:31 PM Question Answer Comments Provide aggressive medical m anagement before a full cardiopulmonary arrest occurs. Use antibiotics, IV Fluids, and medical treatment unless specifically selected below: No intubation Care Teams Phonograph Needle Tip Maker Relationship Specialty Start Date End Date Beata Reyes DO [address] [place] [address] PCP - General Family Medicine 08/02/21
--- OUTSIDE RECORDS SUMMARY | 2025-07-07 13:50 | XMS_ITS | Patient Health Record ---
Author Organization [facility] Address [address] [place], [place] [id number] Care Team Providers Care Navy Fighter Pilot Name Role Phone Jaison Bojorquez Primary Care Provider Jose Sapp Unavailable [phone] Allergies No Known Allergies Reason For Referral No Information Medications Medication SIG (Take, Route, Frequency, Duration) Notes Start Date End Date Status Ambien 5 MG Tablet 1 tab(s) orally once a day (at bedtime) prn Active Gabapentin 300 MG Capsule 1 cap(s) orally 3 times a day Active Albuterol Sulfate (2.5 MG/3ML) 0.083% Nebulization Solution 3 mL inhaled every 6 hours prn Active Levoxyl 75 MCG Tablet 1 tab(s) orally once a day Active Benadryl Allergy 25 MG Capsule 1 cap(s) orally 3 times a day prn Active NASONEX 50 MCG/INH SPRAY 2 SPRAY(S) INTRANASALLY ONCE A DAY *Please review for potential replacement for e-prescription and drug interaction check* Active Sudafed 30 MG Tablet 1 tab(s) orally every 6 hours prn Active Centrum Silver - Tablet 1 tab(s) orally once a day Active Ipratropium [place] 21 MCG/INH SPRAY 2 SPRAY(S) INTRANASALLY/ B/L 3 TIMES A DAY; Duration: 30 DAYS *Please review and pick correct strength-formulati on from [employer] options. If intended option is not shown, discontinue and re-order from Quick Search* 11/14/2017 Active CITRACAL *Please review f or potential replacement for e-prescription and drug interaction check* Active Calcium 600 + D 600 MG-200 UNITS TABLET 1 TAB(S) ORALLY 3 TIMES A DAY *Please review and pick correct strength-formulati on from [employer] options. If intended option is not shown, discontinue and re-order from Quick Search* Active Vitamin D (Ergocalciferol) 1.25 MG (10148 UT) Capsule 1 cap(s) orally 2 times a week Active Ipratropium [place] 21 MCG/INH SPRAY 2 SPRAY(S) IN EACH NOSTRIL 3 TIMES A DAY; Duration: 30 DAYS *Please review and pick correct strength-formulati on from [employer] options. If intended option is not shown, discontinue and re-order from Quick Search* 12/10/2019 Active CALTRATE 600 MG TABLET 2 TAB(S) ORALLY 3 TIMES A DAY *Please review for potential replacement for e-prescription and drug interaction check* Active Singulair 10 MG Tablet 1 tab(s) orally once a day (in the evening); Duration: 90 days Active Vitamin D3 10 MCG (400 UNIT) Tablet 2 tab(s) orally once a day Active ZyrTEC Allergy 10 MG Tablet 1 tab(s) orally once a day; Duration: 90 days Active Azelastine HCl 137 MCG/SPRAY Solution 2 spray(s) intranasally 2 times a day; Duration: 30 day(s) 08/09/2016 Active Prolia 60 MG/ML Solution Prefilled Syringe 0 subcutaneously every 6 months Active ASPRIN 81 MG *Please review f or potential replacement for e-prescription and drug interaction check* Active Immunizations Vaccine Route Administration Date Status Comme nts Influenza Unknown 08/09/2016 Administered Social History Social History Additional Details Category Social Info Options Details Social History Occupation Yes Recreational drug use No Smokeless Tobacco No Passive smoke exp: No Problems Problem Type SNOMED Code ICD Code Onset Dates Problem Status W/U Status Risk Notes Problem Cough (31724200) Cough (R05) Active confirmed Problem Allergic rhinitis (88261448) Allergic rhinitis, unspecified (J30.9) Active confirmed Problem Feeling of lump in throat (finding) (581425532) 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) Active confirmed Problem Chronic rhinitis (02966433) Chronic rhinitis (J31.0) Active confirmed Problem Chronic sinusitis (25706638) Chronic sinusitis, unspecified (J32.9) Active confirmed Problem Hypertrophy of nasal turbinates (79941739) Hypertrophy of nasal turbinates (J34.3) Active confirmed Problem Gastroesophageal reflux disease (235865612) Gastro-esophag eal reflux disease without esophagitis-La ryngopharyngea l Reflux (K21.9) Active confirmed Problem Autoimmune thyroiditis (11208844) Autoimmune thyroiditis (E06.3) Active confirmed Plan Of Treatment No Information Insurance Providers Payer Name Payer Address Payer Phone Subscriber Number Group Number Insured Name Patient Relationship to Insured Coverage Start Date Coverage End Date [facility] [address] [place] [address] [id number] Marielle Rios Self - patient is the insured [employer] [address] [place] [phone] [id number] Marielle Rios Self - patient is the insured Medical (General) History Medical History History ICD Code Pertinent Medical History: S inusitis, History of Allergies, Asthma, Thyroid problems, Bronchitis osteoporosis, spinal stenosi s c6/c7 c7/t1, degenerative disc buldge, thoracic outlet syndrome, 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
== END 2025-07-07 11:21 | disposition home or self-care (01) ==
PROVIDERS: Referring Provider Podiatrist Foot & Ankle Surgery; Visit Provider Internal Medicine Endocrinology, Diabetes & Metabolism
DX: E03.9 Hypothyroidism, unspecified (principal); Z01.818 Encounter for other preprocedural examination; R94.31 Abnormal electrocardiogram [ECG] [EKG]
CPT/HCPCS: 36415; 80053; 84443; 93005